=== PATIENT | male | born 1950 | race Caucasian/White ===

== ENCOUNTER → 2017-04-08 | Outpatient (CLI) | payer BC ==
[2017-04-08 12:18] LABS: ESTIMATED AVERAGE GLUCOSE 166 mg/dl; HA1C FLAG Normal (Normal)
== END | disposition home or self-care (01) ==
LOC: C.LABBC 09:25
PROVIDERS: ATTEND Nurse Practitioner Family
DX: R53.83 Other fatigue (principal)

== ENCOUNTER → 2017-04-15 | Outpatient (CLI) | payer BC ==
[2017-04-15 11:19] LABS: ALT/SGPT 36 U/L (12-78); AST/SGOT 30 U/L (15-37); BLOOD UREA NITROGEN 14 mg/dl (7-18); CALCIUM 8.3 mg/dl (8.5-10.1); CARBON DIOXIDE 33 mmol/L (21-32); CHLORIDE 106 mmol/L (98-107); GLUCOSE 156 mg/dl (70-99); POTASSIUM 3.8 mmol/L (3.5-5.1); SODIUM 142 mmol/L (136-145)
[2017-04-15 11:21] LABS: ALB/GLOB RATIO 0.9 (0.9-2); ALKALINE PHOSPHATASE 110 U/L (45-117)
== END | disposition home or self-care (01) ==
LOC: C.LABBC 09:15
PROVIDERS: ATTEND Family Medicine
DX: E11.65 Type 2 diabetes mellitus with hyperglycemia (principal)

== ENCOUNTER → 2017-04-15 | Outpatient (CLI) | payer BC ==
--- NOTE | 2017-04-15 09:27 | DIAGNOSTIC IMAGING REPORT ---
[facility] CLINICAL HISTORY: KIDNEY STONE nephrocalcinosis COMPARISON STUDY: 02/27/2015 FINDINGS: The soft tissues, psoas shadows, renal outlines and intestinal gas pattern appear normal. There is no evidence for bowel obstruction. No abnormal abdominal calcifications are seen. IMPRESSION: Normal study. Electronically signed by: Nader Lorenz M.D. 04/15/2017 9:25 AM Dictated Date/Time: 04/15/2017 9:25 AM
== END | disposition home or self-care (01) ==
LOC: C.RADBC 09:11
PROVIDERS: ATTEND Urology
DX: N40.1 Benign prostatic hyperplasia with lower urinary tract symptoms (principal); N20.0 Calculus of kidney

== ENCOUNTER → 2017-08-19 | Outpatient (CLI) | payer BC ==
[2017-08-19 11:32] LABS: ESTIMATED AVERAGE GLUCOSE 160 mg/dl; HA1C FLAG Normal (Normal)
== END | disposition home or self-care (01) ==
LOC: C.LABBC 08:39
PROVIDERS: ATTEND Nurse Practitioner Family
DX: E11.65 Type 2 diabetes mellitus with hyperglycemia (principal)

== ENCOUNTER → 2017-10-23 | Outpatient (CLI) | payer BC | END | disposition home or self-care (01) | LOC: C.LAB 18:53 | PROVIDERS: ATTEND Nurse Practitioner Adult Health | DX: R39.9 Unspecified symptoms and signs involving the genitourinary system (principal) ==

== ENCOUNTER 2024-05-05 18:32 | Inpatient (IN) ==
[2024-05-05] MEDS: OPTIRAY 320 150ml IV ONE (18:40)
--- NOTE | 2024-05-05 18:49 | Emergency Department Note ---
Impression & Plan Stroke-like symptoms, Acute right-sided muscle weakness, Frequent PVCs ED Provider Note NAME: SILAS BAIRD (JACK) AGE: 73 SEX: M : 1950 ARRIVES VIA: Ambulance INFORMANT: Patient, EMS, the patient's significant other ED PROVIDER(S): Johnny Chawla DO CHIEF COMPLAINT: Strokelike symptoms HPI: The patient is a 73-year-old male who presented to the emergency department for evaluation of strokelike symptoms. The patient has a history of a stroke in the past. He also has a history of coronary artery disease. He does not take blood thinners. The patient called 911 after he started having symptoms of stroke. He was watching a ball game and approximately 5 PM he started noticing his right arm did not feel right. He tried to stand up and went to the ground because of the right leg would not support him. His significant other also notices that he has a left facial droop. He has a history of stroke in the past. The patient denies having any fever or chest pain. He denies having any nausea or vomiting. He does not take blood thinners. ROS: See above HPI for pertinent positives & negatives. A total of 10 systems reviewed and were otherwise negative. PAST MEDICAL HISTORY: See Below PAST SURGICAL HISTORY: See Below FAMILY HISTORY: See Below SOCIAL HISTORY: See Below HOME MEDICATIONS: See Below ALLERGIES: See Below VITALS: See Below PHYSICAL EXAMINATION: GENERAL: Patient is awake alert in no acute distress patient is resting comfortably and showing no signs of anxiety EYES: The conjunctivae are clear. The pupils are round and reactive. EARS, NOSE, MOUTH AND THROAT: The nose is without any evidence of any deformity. NECK: The neck is nontender and supple. RESPIRATORY: Normal respiratory effort is noted there is no evidence of wheezing rhonchi or rales CARDIOVASCULAR: Regular rate and rhythm noted there no murmurs rubs or gallops normal S1 normal S2. GASTROINTESTINAL: The abdomen is soft. Abdomen is nontender. MUSCULOSKELETAL/EXTREMITIES: There is no evidence of gross deformity full range of motion is noted in the hips and shoulders. SKIN: There is no obvious evidence of any rash. There are no petechiae, pallor or cyanosis noted. NEUROLOGIC: Patient is awake alert and oriented x3. The patient was able to stand but he could not bring his right leg up to initiate gait. The patient is able to hold each leg off the bed for greater than 5 seconds. Planning Management It Specialist strength is symmetric. There is left-sided facial droop with forehead sparing. MEDICAL DECISION MAKING: The patient is a 73-year-old male who presented to the emergency department as a stroke alert. I did receive a prehospital notification about the patient. The patient had an acute onset of right-sided weakness. He was also found to have a left-sided facial droop in the emergency department. I discussed the patient's laboratory and radiographic studies with him. Initially when I saw him in CT he did have significant deficits including an inability to walk with his right leg. He was able to bear weight at that time although he was not able to bear weight earlier. A call was made to pharmacy after my initial evaluation of the CAT scan revealed no acute hemorrhage. The thrombolytic was at the bedside but the patient continued to improve while I was evaluating him in the room. I was on the phone with the telestroke neurologist. After discussion with the patient as well as his significant other the decision was made but they did not wish to have TNK for the symptoms as they were rapidly improving and at this point the patient felt they were mild. The patient was reevaluated multiple times. I discussed his condition with the on-call [facility] hospitalist. He was treated with IV fluids Plavix and IV magnesium. Triage Nursing notes reviewed. Prior medical records reviewed Vital Signs: reviewed and remarkable for no significant abnormalities Differential diagnosis: Infection, dehydration, metabolic abnormality, hypo/hyperglycemia, electrolyte disturbance, anemia, hypoxia, cardiac sources, intracerebral event, toxicologic, neurologic, as well as other pathologies. ER treatment provided: See below Diagnostics interpreted by me: ECG: EKG was obtained in the emergency department. My interpretation is sinus rhythm at [address] segment abnormalities were noted. PVCs were noted. This was compared to a tracing from January 25, 2024. No changes were noted. Prehospital EKG was evaluated. My interpretation is sinus rhythm at 56 bpm. Frequent PVCs were noted. Nonspecific ST segment abnormalities were noted. This compares similar to the EKG obtained in the emergency department Cardiac Monitoring: An order was placed for continuous cardiac monitoring. The monitor shows a rate of 72 bpm with sinus rhythm. Laboratory studies: As stated above and show below. Imaging studies: See below. Radiographic imaging was reviewed by myself Consultation(s): I discussed this case with Dr. Mg who is on-call for telestroke. I discussed this case with Dr. Sandhu who is on-call for the [facility] hospitalist group. ED COURSE: Procedures: none Critical Care: I have personally spent greater than 45 minutes of critical care time in the direct management of this patient. This includes bedside care, interpretation of diagnostic studies, and testing, discussion with consultants, patient, and family members, and other required patient management activities. This 45 minutes is in excess of all separately billable procedures. 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) Arteriosclerotic cardiovascular disease (Acute) Dyslipidemia (Acute) Enlarged prostate with lower urinary tract symptoms (LUTS) (Acute) Mild depression (Acute) Right homonymous hemianopsia (Acute) Vascular dementia (Acute) Ischemic cardiomyopathy 2008, [place] ER, flown to [place] for open heart, f/u dr vallejo Nephrolithiasis Medical History Peripheral neuropathy Hx of myocardial infarction 2007 Diabetes mellitus, type 2 Hx of renal calculi Irregular heart rhythm History of stroke with residual deficit 2007, went to [place] ER, flew to [place], this happened during his [employer] procedure.-no longer has peripheral vision and has short term memory loss. Vitamin D deficiency Surgical History Hx of cardiac catheterization 2007, [facility], flown to [place] for CABG Hx of colonoscopy 07/2022 repeat in 10 yrs H/O umbilical hernia repair H/O oral surgery Hx of CABG 2007, [place], "multiple bypasses, not sure how many"; f/u cindy lynn Family History Father COPD (chronic obstructive pulmonary disease) Diabetes Mother Hypertension Breast cancer Brother Prostate cancer Denies family history of Ovarian cancer Depression Myocardial infarction Lung cancer Colorectal cancer Stroke Social History Smoking Status: Never smoker Second Hand Exposure: No; Do You Dip or Chew Tobacco: No; Hx Alcohol Use: Yes Alcohol type: beer and wine Alcohol Intake Frequency: Monthly or Less Hx Substance Use: No Preferred Language: Maltese Communication Ability: Effective Visual Impairment: Limited Hearing Ability: Normal 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: No Beliefs That Will Affect Care: None marital status: Current Living Situation: Spouse current occupational status: retired Feels Safe at Home: Yes Childhood Exposure to Second-Hand Smoke: Yes Diet: regular caffeine: Yes Dental Care, Regularly: Yes Physical Activity Frequency: Daily Seatbelt Use: always Sunscreen Use: Yes Do you think of yourself as: straight/heterosexual Assistive Devices: Glasses Allergies Allergies Allergy/AdvReac Type Severity Reaction Status Date / Time No Known Allergies Allergy Verified 05/05/24 19:57 Home Meds Home Medications Medication Instructions Recorded Confirmed fish oil-dha-epa 1,200 mg-144 1 cap PO BID 05/18/19 05/05/24 mg-216 mg capsule calcium carbonate 500 mg-vitamin 1 tab PO BID 08/29/19 05/05/24 D3 15 mcg (600 unit) tablet cholecalciferol (vitamin D3) 25 1,000 units PO QPM 08/29/19 05/05/24 mcg (1,000 unit) capsule dutasteride 0.5 mg capsule 0.5 mg PO QPM 01/25/24 05/05/24 metformin 500 mg tablet,extended See Rx Instructions .Route .COMPLEX 01/25/24 05/05/24 release 24 hr aspirin 81 mg tablet,delayed 81 mg PO DAILY 05/05/24 05/05/24 release tirzepatide 10 mg/0.5 mL 10 mg subcut WK 05/05/24 05/05/24 subcutaneous pen injector Previous Rx's Medication Instructions Recorded blood sugar diagnostic (OneTouch #100 ea 05/24/23 Verio test strips) blood sugar diagnostic (OneTouch #100 ea 05/24/23 Verio test strips) insulin glargine 100 unit/mL (3 20 unit (0.2 mL) subcut HS #15 mL 08/17/23 mL) subcutaneous pen (Basaglar KwikPen U-100 Insulin) pen needle, diabetic 32 gauge x #100 ea 12/18/23" atorvastatin 80 mg tablet 80 mg PO HS #90 tabs 12/25/23 sertraline 50 mg tablet 50 mg PO QPM 90 days #90 tabs 02/12/24 methenamine hippurate 1 gram tablet 1 g PO BID #180 tabs 03/04/24 metoprolol succinate 25 mg 25 mg PO DAILY #90 tabs 04/11/24 tablet,extended release 24 hr Results & Data (ED) Vital Signs Vital Signs - 24 hr 05/05/24 18:42 05/05/24 18:48 05/05/24 18:49 Temperature 36.4 C L Temperature Source Oral Pulse Rate 68 Pulse Rate [Apical] 71 Respiratory Rate 18 Respiratory Effort / Characteristics Non-Labored Respiratory Depth Normal Respiratory Pattern Regular Blood Pressure [Right Arm] 135/76 Blood Pressure Mean [Right Arm] 95 Pulse Oximetry 95 Oxygen Delivery Method Room Air Sepsis Recent Fever Within 48 Hours No Sepsis New/Unexplained Change in Mental Status No Sepsis Action Taken by Nursing No Action Required 05/05/24 18:59 Temperature Temperature Source Pulse Rate Pulse Rate [Apical] 72 Respiratory Rate 20 Respiratory Effort / Characteristics Respiratory Depth Normal Respiratory Pattern Blood Pressure [Right Arm] 133/69 Blood Pressure Mean [Right Arm] 90 Pulse Oximetry 97 Oxygen Delivery Method Room Air Sepsis Recent Fever Within 48 Hours Sepsis New/Unexplained Change in Mental Status Sepsis Action Taken by [facility]dc Medications Current Medication List: was personally reviewed by me Laboratory Data Attestation: I reviewed the patient's lab results. 05/05/24 18:46 05/05/24 18:46 Lab Results 05/05/24 05/05/24 Range/Units 18:46 18:51 WBC 10.21 (4.8-10.8) K/ul RBC 4.51 L (4.70-6.10) M/uL Hgb 13.4 L (14.0-18.0) g/dl Hct 40.0 L (42.0-52.0) % MCV 88.7 (80.0-100.0) fL MCH 29.7 (25.0-34.0) pg MCHC 33.5 (32.0-36.0) g/dL RDW Std Deviation 42.9 (36.4-46.3) fL RDW Coeff of Alirio 13.2 (11.5-14.5) % Plt Count 156 (130-400) K/uL MPV 10.4 (9.4-12.4) fL Immature Gran % (Auto) 0.3 % Neut % (Auto) 59.3 % Lymph % (Auto) 28.2 % [place] % (Auto) 9.8 % Eos % (Auto) 1.7 % Baso % (Auto) 0.7 % Neut # (Auto) 6.06 (1.40-6.50) K/uL Lymph # (Auto) 2.88 (1.20-3.40) K/uL [place] # (Auto) 1.00 H (0.11-0.59) K/uL Eos # (Auto) 0.17 (0.00-0.50) K/uL Baso # (Auto) 0.07 (0.00-0.20) K/uL Immature Gran # (Auto) 0.03 (0.01-0.20) K/uL PT 11.5 (9.0-12.0) Seconds INR 1.1 (0.9-1.1) APTT 26 (21-31) Seconds PTT Ratio 1.0 Sodium 134 L (136-145) mmol/L Potassium 3.7 (3.5-5.1) mmol/L Chloride 104 (98-107) mmol/L Carbon Dioxide 26 (21-32) mmol/L Anion Gap 4 (3-11) BUN 18 (6-23) mg/dl Creatinine 0.78 (0.6-1.4) mg/dl Est Cr Clr Drug Dosing 101.7 ml/min Est GFR ( Amer) 103.8 ml/min Est GFR (Non-Af Amer) 89.6 ml/min BUN/Creatinine Ratio 23.1 H (10-20) Glucose 137 H (70-99(Fasting)) mg/dl POC Glucose 134 H (70-99) mg/dl Calcium 7.9 L (8.6-10.3) mg/dl Magnesium 1.8 (1.7-2.4) mg/dl Total Bilirubin 0.8 (0.2-1.0) mg/dl AST 21 (13-39) U/L ALT 15 (7-52) U/L Alkaline Phosphatase 62 (34-104) U/L Troponin I High Sens 12.9 (0-20) pg/ml Total Protein 6.3 (6.0-8.3) gm/dl Albumin 3.4 (3.4-5.0) gm/dl Globulin 2.9 (2.5-4.0) gm/dl Albumin/Globulin Ratio 1.2 (0.9-2) Administered Medications Sodium Chloride (Nss) 500 mls @ 125 mls/hr IV .Q4H MIRIAM Stop: 06/04/24 19:14 Last Admin: 05/05/24 20:01 Dose: 125 mls/hr Documented By: JOSHUA Discontinued Medications Clopidogrel Bisulfate (Clopidogrel Bisulfate 300 Mg Tab) 300 mg PO NOW STA Stop: 05/05/24 19:43 Last Admin: 05/05/24 19:59 Dose: 300 mg Documented By: JOSHUA Tenecteplase 24 mg/ Syringe 4.8 mls @ 57.6 mls/min IV NOW ONE; Protocol Stop: 05/05/24 18:57 Last Admin: 05/05/24 19:32 Dose: Not Given Documented By: JOSHUA Magnesium Sulfate/Dextrose (Magnesium Sulfate / D5w) 1 gm in 100 mls @ 100 mls/hr IV NOW STA Stop: 05/05/24 20:08 Last Admin: 05/05/24 20:01 Dose: 100 mls/hr Documented By: JOSHUA Ioversol (Optiray 320 150ml) 120 ml IV ONCE ONE Stop: 05/05/24 18:41 Last Admin: 05/05/24 18:40 Dose: 120 ml Documented By: JASON Miscellaneous (Stat Iv/Im) 1 each N/A NOW STA Stop: 05/05/24 18:47 Last Admin: 05/05/24 19:48 Dose: Not Given Documented By: JOSHUA Sodium Chloride (Sodium Chloride 0.9% 10ml Flush) 20 ml IV NOW STA Stop: 05/05/24 18:47 Last Admin: 05/05/24 19:47 Dose: Not Given Documented By: JOSHUA Imaging Data Attestation: I personally reviewed and interpreted this imaging study as follows: My Impression: 1 view chest x-ray was obtained in the emergency department. My interpretation is no free air or definite infiltrate, final report below. CT of the brain was obtained in the emergency department. My interpretation is previous infarct in the left occipital lobe, no intracranial hemorrhage, final report below. Radiologist's Impression: Head CT 05/05/24 18:[address] OF THE BRAIN; CT ANGIOGRAM OF THE BRAIN; CT ANGIOGRAM OF THE NECK CLINICAL HISTORY: Neurological deficit. Stroke like symptoms. COMPARISON STUDY: MRI of the brain dated 05/08/2020. TECHNIQUE: Unenhanced axial CT scan of the brain is performed. Subsequently, following the IV administration of 120 of Optiray 320, CT angiogram of the head and neck was performed from the aortic arch to the vertex. Images are reviewed in the axial, sagittal, and coronal planes. 3-D MIPS images are created and assessed. IV contrast was administered without complication. All measurements were calculated based on NASCET criteria. A dose lowering technique was utilized adhering to the principles of ALARA. CT DOSE: 1434.25 mGy.cm FINDINGS: Brain parenchyma: Left occipital encephalomalacia is consistent with a remote insult. There is ex vacuo dilatation of the posterior horn of the left lateral ventricle. 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 There is no hemorrhage, mass effect, or evidence of acute territorial ischemia by CT criteria. A chronic lacunar infarct is noted in the anterior limb of the right internal capsule. There is also a tiny chronic lacunar infarct in the right thalamus. There is no evidence of enhancing mass lesion on the angiogram phase images. The ventricles, sulci, and cisterns are prominent secondary to change. Freed-white matter differentiation is preserved. No extra-axial fluid collection is seen. Thoracic aorta: There is atherosclerotic calcification of the thoracic aorta. Visualized portions of the thoracic aorta are normal in caliber. The aortic arch demonstrates standard 3-vessel anatomy. Right carotid arterial system: The right common carotid artery is widely patent, as are the right internal and external carotid arteries. Calcified plaque is seen in the carotid bulb. Left carotid arterial system: The left common carotid artery is widely patent, as are the left internal and external carotid arteries. Calcified plaque is seen in the carotid bulb. Vertebral arteries: The vertebral arteries are widely patent bilaterally noting right-sided dominance. Subclavian arteries: Widely patent bilaterally. Intracranial vasculature: There is atherosclerotic calcification of the cavernous carotid and vertebral arteries. The internal carotid arteries are patent at the skull base, as are the anterior and middle cerebral arteries bilaterally. The right A1 segment is diminutive. The vertebrobasilar system and posterior cerebral arteries are widely patent. The right vertebral artery is dominant. There is no aneurysm, high-grade stenosis, or focal vessel cut off seen throughout the intracranial circulation. Jugular veins: Patent bilaterally. Dural sinuses: Patent. Lung apices: Partially visualized upper lobe lung parenchyma appears clear. Soft tissues: The visualized pharyngeal soft tissues are normal in appearance noting angiographic phase technique. The oropharyngeal airway appears widely patent. The salivary and thyroid glands are normal in appearance. No cervical lymphadenopathy is seen. Skeletal structures: The skeletal structures are osteopenic. The calvarium appears intact. The cervical spine is maintained noting multilevel spondylosis. Midline sternotomy wires are observed. Orbits: The bony orbits are intact. Orbital contents are normal as visualized. Sinuses and mastoids: There is trace mucosal thickening in the left maxillary antrum. The remaining paranasal sinuses are clear. The mastoid air cells are well pneumatized. IMPRESSION: 1. There is no hemorrhage, mass effect, or evidence of acute territorial ischemia by CT criteria. 2. Unremarkable CT angiogram of the brain. 3. Unremarkable CT angiogram of the neck. ACT 112: Negative or not required by law. Electronically signed by: Steve Dailey M.D. 05/05/2024 6:59 PM Head CTA 05/05/24 18:[address] OF THE BRAIN; CT ANGIOGRAM OF THE BRAIN; CT ANGIOGRAM OF THE NECK CLINICAL HISTORY: Neurological deficit. Stroke like symptoms. COMPARISON STUDY: MRI of the brain dated 05/08/2020. TECHNIQUE: Unenhanced axial CT scan of the brain is performed. Subsequently, following the IV administration of 120 of Optiray 320, CT angiogram of the head and neck was performed from the aortic arch to the vertex. Images are reviewed in the axial, sagittal, and coronal planes. 3-D MIPS images are created and assessed. IV contrast was administered without complication. All measurements were calculated based on NASCET criteria. A dose lowering technique was utilized adhering to the principles of ALARA. CT DOSE: 1434.25 mGy.cm FINDINGS: Brain parenchyma: Left occipital encephalomalacia is consistent with a remote insult. There is ex vacuo dilatation of the posterior horn of the left lateral ventricle. 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 There is no hemorrhage, mass effect, or evidence of acute territorial ischemia by CT criteria. A chronic lacunar infarct is noted in the anterior limb of the right internal capsule. There is also a tiny chronic lacunar infarct in the right thalamus. There is no evidence of enhancing mass lesion on the angiogram phase images. The ventricles, sulci, and cisterns are prominent secondary to change. Freed-white matter differentiation is preserved. No extra-axial fluid collection is seen. Thoracic aorta: There is atherosclerotic calcification of the thoracic aorta. Visualized portions of the thoracic aorta are normal in caliber. The aortic arch demonstrates standard 3-vessel anatomy. Right carotid arterial system: The right common carotid artery is widely patent, as are the right internal and external carotid arteries. Calcified plaque is seen in the carotid bulb. Left carotid arterial system: The left common carotid artery is widely patent, as are the left internal and external carotid arteries. Calcified plaque is seen in the carotid bulb. Vertebral arteries: The vertebral arteries are widely patent bilaterally noting right-sided dominance. Subclavian arteries: Widely patent bilaterally. Intracranial vasculature: There is atherosclerotic calcification of the cavernous carotid and vertebral arteries. The internal carotid arteries are patent at the skull base, as are the anterior and middle cerebral arteries bilaterally. The right A1 segment is diminutive. The vertebrobasilar system and posterior cerebral arteries are widely patent. The right vertebral artery is dominant. There is no aneurysm, high-grade stenosis, or focal vessel cut off seen throughout the intracranial circulation. Jugular veins: Patent bilaterally. Dural sinuses: Patent. Lung apices: Partially visualized upper lobe lung parenchyma appears clear. Soft tissues: The visualized pharyngeal soft tissues are normal in appearance noting angiographic phase technique. The oropharyngeal airway appears widely patent. The salivary and thyroid glands are normal in appearance. No cervical lymphadenopathy is seen. Skeletal structures: The skeletal structures are osteopenic. The calvarium appears intact. The cervical spine is maintained noting multilevel spondylosis. Midline sternotomy wires are observed. Orbits: The bony orbits are intact. Orbital contents are normal as visualized. Sinuses and mastoids: There is trace mucosal thickening in the left maxillary antrum. The remaining paranasal sinuses are clear. The mastoid air cells are well pneumatized. IMPRESSION: 1. There is no hemorrhage, mass effect, or evidence of acute territorial ischemia by CT criteria. 2. Unremarkable CT angiogram of the brain. 3. Unremarkable CT angiogram of the neck. ACT 112: Negative or not required by law. Electronically signed by: Steve Dailey M.D. 05/05/2024 6:59 PM Neck CTA 05/05/24 18:[address] OF THE BRAIN; CT ANGIOGRAM OF THE BRAIN; CT ANGIOGRAM OF THE NECK CLINICAL HISTORY: Neurological deficit. Stroke like symptoms. COMPARISON STUDY: MRI of the brain dated 05/08/2020. TECHNIQUE: Unenhanced axial CT scan of the brain is performed. Subsequently, following the IV administration of 120 of Optiray 320, CT angiogram of the head and neck was performed from the aortic arch to the vertex. Images are reviewed in the axial, sagittal, and coronal planes. 3-D MIPS images are created and assessed. IV contrast was administered without complication. All measurements were calculated based on NASCET criteria. A dose lowering technique was utilized adhering to the principles of ALARA. CT DOSE: 1434.25 mGy.cm FINDINGS: Brain parenchyma: Left occipital encephalomalacia is consistent with a remote insult. There is ex vacuo dilatation of the posterior horn of the left lateral ventricle. 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 There is no hemorrhage, mass effect, or evidence of acute territorial ischemia by CT criteria. A chronic lacunar infarct is noted in the anterior limb of the right internal capsule. There is also a tiny chronic lacunar infarct in the right thalamus. There is no evidence of enhancing mass lesion on the angiogram phase images. The ventricles, sulci, and cisterns are prominent secondary to change. Freed-white matter differentiation is preserved. No extra-axial fluid collection is seen. Thoracic aorta: There is atherosclerotic calcification of the thoracic aorta. Visualized portions of the thoracic aorta are normal in caliber. The aortic arch demonstrates standard 3-vessel anatomy. Right carotid arterial system: The right common carotid artery is widely patent, as are the right internal and external carotid arteries. Calcified plaque is seen in the carotid bulb. Left carotid arterial system: The left common carotid artery is widely patent, as are the left internal and external carotid arteries. Calcified plaque is seen in the carotid bulb. Vertebral arteries: The vertebral arteries are widely patent bilaterally noting right-sided dominance. Subclavian arteries: Widely patent bilaterally. Intracranial vasculature: There is atherosclerotic calcification of the cavernous carotid and vertebral arteries. The internal carotid arteries are patent at the skull base, as are the anterior and middle cerebral arteries bilaterally. The right A1 segment is diminutive. The vertebrobasilar system and posterior cerebral arteries are widely patent. The right vertebral artery is dominant. There is no aneurysm, high-grade stenosis, or focal vessel cut off seen throughout the intracranial circulation. Jugular veins: Patent bilaterally. Dural sinuses: Patent. Lung apices: Partially visualized upper lobe lung parenchyma appears clear. Soft tissues: The visualized pharyngeal soft tissues are normal in appearance noting angiographic phase technique. The oropharyngeal airway appears widely patent. The salivary and thyroid glands are normal in appearance. No cervical lymphadenopathy is seen. Skeletal structures: The skeletal structures are osteopenic. The calvarium appears intact. The cervical spine is maintained noting multilevel spondylosis. Midline sternotomy wires are observed. Orbits: The bony orbits are intact. Orbital contents are normal as visualized. Sinuses and mastoids: There is trace mucosal thickening in the left maxillary antrum. The remaining paranasal sinuses are clear. The mastoid air cells are well pneumatized. IMPRESSION: 1. There is no hemorrhage, mass effect, or evidence of acute territorial ischemia by CT criteria. 2. Unremarkable CT angiogram of the brain. 3. Unremarkable CT angiogram of the neck. ACT 112: Negative or not required by law. Electronically signed by: Steve Dailey M.D. 05/05/2024 6:59 PM Discharge Plan Visit Data Chief Complaint: Stroke Alert Stated Complaint: STROKE ALERT ED Provider: Jonhny Chawla Discharge Problem: Stroke-like symptoms, Acute right-sided muscle weakness, Frequent PVCs Patient Disposition: Being Evaluated by Hospitalist Forms Stand Alone Forms: [facility] Unruly Prescriptions Prescriptions: No Action (DME) OneTouch Verio test strips Strip See Dose Instructions .ROUTE .MEDSUPPLY Qty: 100 5RF Rx Instructions: Test twice daily (DME) OneTouch Verio test strips Strip See Dose Instructions .ROUTE .MEDSUPPLY Qty: 100 5RF Rx Instructions: Test twice daily insulin glargine [Basaglar KwikPen U-100 Insulin] 100 unit/mL (3 mL) insulin pen 20 unit subcut HS Qty: 15 3RF Rx Instructions: INJECT 20 UNITS SUBCUTANEOUSLY ONCE DAILY (DME) pen needle, diabetic 32 gauge x 5/32" needle See Dose Instructions .ROUTE .MEDSUPPLY Qty: 100 3RF Dose Instruction: As directed Rx Instructions: As directed Relion Pen [place] #50-(4mm x 32G) atorvastatin 80 mg tablet 80 mg PO HS Qty: 90 3RF sertraline 50 mg tablet 50 mg PO QPM 90 Days Qty: 90 1RF methenamine hippurate 1 gram tablet 1 g PO BID Qty: 180 3RF fish oil-dha-epa 1,200-144-216 mg capsule 1 cap PO BID calcium carbonate-vitamin D3 500mg (1,250mg) -600 unit tablet 1 tab PO BID cholecalciferol (vitamin D3) 1,000 unit capsule 1,000 units PO QPM metoprolol succinate 25 mg tablet extended release 24 hr 25 mg PO DAILY Qty: 90 3RF Rx Instructions: PER PT'S SPOUSE "ONLY GAVE HIM 12.5 MG THIS MORNING". dutasteride 0.5 mg capsule 0.5 mg PO QPM metformin 500 mg tablet extended release 24 hr See Rx Instructions .ROUTE .COMPLEX Rx Instructions: TAKES 500mg in AM and 1000mg in PM; aspirin 81 mg Tablet,Delayed Release (Dr/Ec) 81 mg PO DAILY tirzepatide 10 mg/0.5 mL pen injector 10 mg subcut WK Patient Comments: weekly on Sundays, last dose 01/21/2024 Rx Instructions: THURSDAYS----HAVE ISSUES GETTING FROM PHARMACY Referrals Referrals: Jim Sandoval DO [Primary Care Provider] -
[2024-05-05 18:58] LABS: Basophils # (auto) 0.07 K/uL (0.00-0.20); Basophils % (auto) 0.7 %; Eosinophils # (auto) 0.17 K/uL (0.00-0.50); Eosinophils % (auto) 1.7 %; Hemoglobin 13.4 g/dl (14.0-18.0); Immature Granulocytes # (auto) 0.03 K/uL (0.01-0.20); Immature Granulocytes % (auto) 0.3 %; Lymphocytes # (auto) 2.88 K/uL (1.20-3.40); Lymphocytes % (auto) 28.2 %; Mean Corpuscular Hemoglobin 29.7 pg (25.0-34.0); Mean Corpuscular Hgb Conc 33.5 g/dL (32.0-36.0); Mean Corpuscular Volume 88.7 fL (80.0-100.0); Mean Platelet Volume 10.4 fL (9.4-12.4); Monocytes % (auto) 9.8 %; Neutrophils # (auto) 6.06 K/uL (1.40-6.50); Neutrophils % (auto) 59.3 %; Platelet Count 156 K/uL (130-400); RDW Coefficient of Variation 13.2 % (11.5-14.5); RDW Standard Deviation 42.9 fL (36.4-46.3); Red Blood Count 4.51 M/uL (4.70-6.10); White Blood Count 10.21 K/ul (4.8-10.8)
[2024-05-05] MEDS ORDERED: No Aspirin within 24hrs of THROMBOLYTIC-Stroke PO SCH (19:00)
--- NOTE | 2024-05-05 19:01 | CT Scan Report ---
UNENHANCED CT OF THE BRAIN; CT ANGIOGRAM OF THE BRAIN; CT ANGIOGRAM OF THE NECK CLINICAL HISTORY: Neurological deficit. Stroke like symptoms. COMPARISON STUDY: MRI of the brain dated 05/08/2020. TECHNIQUE: Unenhanced axial CT scan of the brain is performed. Subsequently, following the IV adminis tration of 120 of Optiray 320, CT angiogram of the head and neck was performed from the aortic arch t o the vertex. Images are reviewed in the axial, sagittal, and coronal planes. 3-D MIPS images are cre ated and assessed. IV contrast was administered without complication. All measurements were calculate d based on NASCET criteria. A dose lowering technique was utilized adhering to the principles of ALA RA. CT DOSE: 1434.25 mGy.cm FINDINGS: Brain parenchyma: Left occipital encephalomalacia is consistent with a remote insult. There is ex vac uo dilatation of the posterior horn of the left lateral ventricle. 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 There is no hemorrhage, mass effect, or evidence of acute territorial ischemia by CT criteria. 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 There is also a tiny chronic lacunar infarct in the right thalamus. There is no evidence of enhancing mass lesion on the angiogra m phase images. The ventricles, sulci, and cisterns are prominent secondary to change. Freed-white mat ter differentiation is preserved. No extra-axial fluid collection is seen. Thoracic aorta: There is atherosclerotic calcification of the thoracic aorta. Visualized portions of the thoracic aorta are normal in caliber. The aortic arch demonstrates standard 3-vessel anatomy. Right carotid arterial system: The right common carotid artery is widely patent, as are the right int ernal and external carotid arteries. Calcified plaque is seen in the carotid bulb. Left carotid arterial system: The left common carotid artery is widely patent, as are the left undergraduate internship al and external carotid arteries. Calcified plaque is seen in the carotid bulb. Vertebral arteries: The vertebral arteries are widely patent bilaterally noting right-sided dominance . Subclavian arteries: Widely patent bilaterally. Intracranial vasculature: There is atherosclerotic calcification of the cavernous carotid and vertebr al arteries. The internal carotid arteries are patent at the skull base, as are the anterior and midd le cerebral arteries bilaterally. The right A1 segment is diminutive. The vertebrobasilar system and posterior cerebral arteries are widely patent. The right vertebral artery is dominant. There is no an eurysm, high-grade stenosis, or focal vessel cut off seen throughout the intracranial circulation. Jugular veins: Patent bilaterally. Dural sinuses: Patent. Lung apices: Partially visualized upper lobe lung parenchyma appears clear. Soft tissues: The visualized pharyngeal soft tissues are normal in appearance noting angiographic pha se technique. The oropharyngeal airway appears widely patent. The salivary and thyroid glands are nor mal in appearance. No cervical lymphadenopathy is seen. Skeletal structures: The skeletal structures are osteopenic. The calvarium appears intact. The cervic al spine is maintained noting multilevel spondylosis. Midline sternotomy wires are observed. Orbits: The bony orbits are intact. Orbital contents are normal as visualized. Sinuses and mastoids: There is trace mucosal thickening in the left maxillary antrum. The remaining p aranasal sinuses are clear. The mastoid air cells are well pneumatized. IMPRESSION: 1. There is no hemorrhage, mass effect, or evidence of acute territorial ischemia by CT criteria. 2. Unremarkable CT angiogram of the brain. 3. Unremarkable CT angiogram of the neck. ACT 112: Negative or not required by law. Electronically signed by: Steve Dailey M.D. 05/05/2024 6:59 PM
[2024-05-05 19:09] LABS: INR 1.1 (0.9-1.1); Partial Thromboplastin Time 26 Seconds (21-31); Prothrombin Time 11.5 Seconds (9.0-12.0)
[2024-05-05 19:15] LABS: Albumin Level 3.4 gm/dl (3.4-5.0); Bilirubin,Total 0.8 mg/dl (0.2-1.0); Calcium 7.9 mg/dl (8.6-10.3); Magnesium 1.8 mg/dl (1.7-2.4); Potassium 3.7 mmol/L (3.5-5.1)
[2024-05-05 19:21] LABS: Albumin Globulin Ratio 1.2 (0.9-2); BUN Creatinine Ratio 23.1 (10-20); Creatinine Clr Calc Pharmacy 101.7 ml/min; Est GFR (African American) 103.8 ml/min; Est GFR (Non-African American) 89.6 ml/min; Globulin 2.9 gm/dl (2.5-4.0); Total Protein 6.3 gm/dl (6.0-8.3)
[2024-05-05 19:25] LABS: Troponin I High Sensitivity 12.9 pg/ml (0-20)
[2024-05-05] MEDS: TENECTEPLASE 24 MG in SYRINGE 0 ML IV ONE (19:32)
[2024-05-05] MEDS: SODIUM CHLORIDE 0.9% 10ML FLUSH IV STA (19:47)
[2024-05-05] MEDS: STAT IV/IM STA (19:48)
[2024-05-05] MEDS: CLOPIDOGREL BISULFATE 300 MG TAB PO STA (19:59)
[2024-05-05] MEDS: MAGNESIUM SULFATE / D5W 1 GM/100 ML BAG IV STA (20:01)
[2024-05-05] MEDS: SODIUM CHLORIDE 0.9% 500 ML IV SCH (20:01)
--- NOTE | 2024-05-05 20:12 | XRay Report ---
SINGLE VIEW CHEST CLINICAL HISTORY: Neurological deficit. Stroke like symptoms FINDINGS: An AP, portable, upright chest radiograph is compared to study dated 01/25/2024. The patient is status post midline sternotomy. The heart is enlarged noting atherosclerotic calcification of the thoracic aorta. There is pulmonary vascular congestion. There is a small right pleural effusion. Ate lectasis is noted at both lung bases. No pneumothorax is seen. The skeletal structures are osteopenic . The bony thorax is grossly intact. IMPRESSION: 1. Cardiomegaly with pulmonary vascular congestion. 2. Small right pleural effusion. ACT 112: Negative or not required by law. Electronically signed by: Steve Dailey M.D. 05/05/2024 8:10 PM
--- NOTE | 2024-05-05 20:22 | History & Physical Report ---
Date of Service May 05, 2024 Assessment & Plan (1) Stroke-like symptoms: Plan: 73yo right-handed male presenting with acute onset of RUE/RLE numbness and weakness which started this evening at 17:00. Patient presented to the ER as a Stroke Alert. Symptoms improved greatly - no indication for TNKase administration. Presently feels near normal. -Check MRI brain -Check 2D echo with bubble -Plavix load administered 300mg po. Continue Plavix 75mg po daily -Continue ASA 81mg po daily -Continue Atorvastatin 80mg po daily -PT/OT assessments appreciated -Check lipid panel and Hgb AIC (2) CAD (coronary artery disease): Plan: Chronic. Stable. No chest pain -Continue (3) Asymptomatic bacteriuria: Plan: Patient afebrile, HD stable and non-toxic in appearance. No urinary symptoms. He does have history of urethral stricture with incomplete bladder emptying s/p dilation in January. No complaints -Will hold off on treatment -Continue methenamine Hippurate for chronic suppression Plan Depression/Anxiety - chronic. stable -Continue Sertraline 50mg po qPM F/E/N - NSS at 100mL/hr x 1L, Mg x 1gm administered, regular diet as tolerated Ppx - SCDs to bilateral LE Code - Full Dispo - Admit to medical with telemetry History of Present Illness Chief Complaint: right sided neuro deficit Primary Care Provider: Jim Sandoval DO Jose Roberts is a pleasant 73yo right-handed male with history of DM, HLP, CAD presenting with stroke-like symptoms. Patient was in his usual state of health until this evening around 17:00 when he developed numbness, tingling and weakness of the RUE and RLE. He was watching an [employer] baseball game when he went to nut picker his drink and found that he was unable to grasp the cup with his right hand or lift his right arm. He tried to get up and walk and noted that his right leg felt numb and he couldn't lift it to ambulate. EMS was called and he was brought to the ER. Stroke-Alert was activated and patient was to receive TNKase. However, his symptoms were steadily improving so TNKase was not administered. Patient feels that he continues to improve now and is near normal. He had a slight headache yesterday which improved by drinking water. Otherwise no complaints. He denies fever, chills, cough, SOB, chest pain, palpitations, abdominal pain, nausea, vomiting or diarrhea. No headache currently. No speech deficits or visual impairment. Patient had an NSTEMI in 05/2008 s/p 2V CABG. His post-operative course was complicated by VT/VF arrest as well as atrial fibrillation. 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 In the ER he has been afebrile, HD stable ER Course: Plavix 300mg NSS x 500mL Mag x 1gm Allergies Allergy/AdvReac Type Severity Reaction Status Date / Time No Known Allergies Allergy Verified 05/05/24 19:57 Home Medications Medication Instructions Recorded Confirmed Type fish oil-dha-epa 1,200 mg-144 1 cap PO BID 05/18/19 05/05/24 History mg-216 mg capsule calcium carbonate 500 mg-vitamin 1 tab PO BID 08/29/19 05/05/24 History D3 15 mcg (600 unit) tablet cholecalciferol (vitamin D3) 25 1,000 units PO QPM 08/29/19 05/05/24 History mcg (1,000 unit) capsule blood sugar diagnostic (OneTouch #100 ea 05/24/23 04/11/24 Rx Verio test strips) blood sugar diagnostic (OneTouch #100 ea 05/24/23 04/11/24 Rx Verio test strips) insulin glargine 100 unit/mL (3 20 unit (0.2 mL) subcut HS #15 mL 07/13/23 05/05/24 Rx mL) subcutaneous pen (Roniaglyue Hernandez U-100 Insulin) pen needle, diabetic 32 gauge x #100 ea 12/18/23 04/11/24 Rx 5/32" atorvastatin 80 mg tablet 80 mg PO HS #90 tabs 12/25/23 05/05/24 Rx dutasteride 0.5 mg capsule 0.5 mg PO QPM 01/25/24 05/05/24 History metformin 500 mg tablet,extended See Rx Instructions .Route .COMPLEX 01/25/24 05/05/24 History release 24 hr sertraline 50 mg tablet 50 mg PO QPM 90 days #90 tabs 02/12/24 05/05/24 Rx methenamine hippurate 1 gram tablet 1 g PO BID #180 tabs 03/04/24 05/05/24 Rx metoprolol succinate 25 mg 25 mg PO DAILY #90 tabs 04/11/24 05/05/24 Rx tablet,extended release 24 hr aspirin 81 mg tablet,delayed 81 mg PO DAILY 05/05/24 05/05/24 History release tirzepatide 10 mg/0.5 mL 10 mg subcut WK 05/05/24 05/05/24 History subcutaneous pen injector Past Med/Surg History Problem List (Updated 05/06/24 @ 02:01 by Es Sandhu DO) Asymptomatic bacteriuria Frequent PVCs (Acute) Acute right-sided muscle weakness (Acute) Stroke-like symptoms (Acute) Orthostatic lightheadedness S/P CABG x 2 CAD (coronary artery disease) H/O: stroke with residual effects Urethral stricture Obesity Incomplete emptying of bladder Recurrent UTI Diabetes mellitus type 2 in obese Sinus arrhythmia Sensory ataxia Gait apraxia Diabetic peripheral neuropathy (Chronic) Arteriosclerotic cardiovascular disease (Acute) Dyslipidemia (Acute) Enlarged prostate with lower urinary tract symptoms (LUTS) (Acute) Mild depression (Acute) Right homonymous hemianopsia (Acute) Vascular dementia (Acute) Ischemic cardiomyopathy 2008, [place] ER, flown to [place] for open heart, f/u dr vallejo Nephrolithiasis Medical History Peripheral neuropathy Hx of myocardial infarction 2007 Diabetes mellitus, type 2 Hx of renal calculi Irregular heart rhythm History of stroke with residual deficit 2007, went to [place] ER, flew to [place], this happened during his Widowmaker procedure.-no longer has peripheral vision and has short term memory loss. Vitamin D deficiency Surgical History Hx of cardiac catheterization 2007, [facility], flown to [place] for CABG Hx of colonoscopy 07/2022 repeat in 10 yrs H/O umbilical hernia repair H/O oral surgery Hx of CABG 2007, [place], "multiple bypasses, not sure how many"; f/u cindy lynn Family History Father COPD (chronic obstructive pulmonary disease) Diabetes Mother Hypertension Breast cancer Brother Prostate cancer Denies family history of Ovarian cancer Depression Myocardial infarction Lung cancer Colorectal cancer Stroke Social History Smoking Status: Never smoker Second Hand Exposure: No; Do You Dip or Chew Tobacco: No; Hx Alcohol Use: No Hx Substance Use: No Preferred Language: Croatian Communication Ability: Effective Visual Impairment: Limited Hearing Ability: Normal [employer] Required: No Beliefs That Will Affect Care: None marital status: Current Living Situation: Alone and Spouse Current Living Situation Comment: lives at home with current occupational status: retired Other Information That Helps Us Care for You: No Feels Safe at Home: Yes Safety Concerns: Feels Safe At This Time Childhood Exposure to Second-Hand Smoke: Yes Diet: regular caffeine: Yes Dental Care, Regularly: Yes Physical Activity Frequency: Daily Seatbelt Use: always Sunscreen Use: Yes Do you think of yourself as: straight/heterosexual Assistive Devices: Glasses Review of Systems Review of Systems: All systems reviewed & are unremarkable except as noted in HPI & below Physical Exam Physical Exam: General: patient resting comfortably, NAD, non-toxic in appearance, AA&O x 4 Skin: warm, dry, intact, no rashes or lesions HEENT: NC/AT, PERRL, EOMI, anicteric sclera, conjunctiva without injection, external ear normal to inspection and nontender, nares patent, moist mucus membranes, dentition intact, no oropharyngeal lesions, neck supple, trachea midline, no LAD, no thyromegaly, no JVD Heart: +S1/S2, regular, no m/r/g Lungs: equal air entry bilaterally, no rales/rhonchi/wheezes Abd: +BS, soft, NT/ND, no masses/organomegaly/ascites Ext: warm, 2+ pulses in UE/LE bilaterally, no clubbing/cyanosis or edema Neuro: AA&O x 4, speech fluent and appropriate, no facial droop, CN II - XII grossly intact, sensation to light touch intact in UE/LE bilaterally, MS 5/5 in UE/LE bilaterally, some mild dysmetria noted with [id number] testing bilaterally, [id number] WNL Results & Data Results & Data Vital Signs (Past 12 Hours) Vital Signs Temp Pulse Pulse Resp BP Pulse Ox O2 Del Method 05/05/24 20:00 Room Air 05/05/24 18:59 72 20 133/69 97 Room Air 05/05/24 18:49 71 18 135/76 95 Room Air 05/05/24 18:48 68 05/05/24 18:42 36.4 C L Laboratory Results Laboratory Results WBC 10.21 K/ul (4.8-10.8) 05/05/24 18:46 RBC 4.51 M/uL (4.70-6.10) L 05/05/24 18:46 Hgb 13.4 g/dl (14.0-18.0) L 05/05/24 18:46 Hct 40.0 % (42.0-52.0) L 05/05/24 18:46 MCV 88.7 fL (80.0-100.0) 05/05/24 18:46 MCH 29.7 pg (25.0-34.0) 05/05/24 18:46 MCHC 33.5 g/dL (32.0-36.0) 05/05/24 18:46 RDW Std Deviation 42.9 fL (36.4-46.3) 05/05/24 18:46 RDW Coeff of Alirio 13.2 % (11.5-14.5) 05/05/24 18:46 Plt Count 156 K/uL (130-400) 05/05/24 18:46 MPV 10.4 fL (9.4-12.4) 05/05/24 18:46 Immature Gran % (Auto) 0.3 % 05/05/24 18:46 Neut % (Auto) 59.3 % 05/05/24 18:46 Lymph % (Auto) 28.2 % 05/05/24 18:46 Latimer % (Auto) 9.8 % 05/05/24 18:46 Eos % (Auto) 1.7 % 05/05/24 18:46 Baso % (Auto) 0.7 % 05/05/24 18:46 Neut # (Auto) 6.06 K/uL (1.40-6.50) 05/05/24 18:46 Lymph # (Auto) 2.88 K/uL (1.20-3.40) 05/05/24 18:46 Latimer # (Auto) 1.00 K/uL (0.11-0.59) H 05/05/24 18:46 Eos # (Auto) 0.17 K/uL (0.00-0.50) 05/05/24 18:46 Baso # (Auto) 0.07 K/uL (0.00-0.20) 05/05/24 18:46 Immature Gran # (Auto) 0.03 K/uL (0.01-0.20) 05/05/24 18:46 PT 11.5 Seconds (9.0-12.0) 05/05/24 18:46 INR 1.1 (0.9-1.1) 05/05/24 18:46 APTT 26 Seconds (21-31) 05/05/24 18:46 PTT Ratio 1.0 05/05/24 18:46 Sodium 134 mmol/L (136-145) L 05/05/24 18:46 Potassium 3.7 mmol/L (3.5-5.1) 05/05/24 18:46 Chloride 104 mmol/L (98-107) 05/05/24 18:46 Carbon Dioxide 26 mmol/L (21-32) 05/05/24 18:46 Anion Gap 4 (3-11) 05/05/24 18:46 BUN 18 mg/dl (6-23) 05/05/24 18:46 Creatinine 0.78 mg/dl (0.6-1.4) 05/05/24 18:46 Est Cr Clr Drug Dosing 101.7 ml/min 05/05/24 18:46 Est GFR ( Amer) 103.8 ml/min 05/05/24 18:46 Est GFR (Non-Af Amer) 89.6 ml/min 05/05/24 18:46 BUN/Creatinine Ratio 23.1 (10-20) H 05/05/24 18:46 Glucose 137 mg/dl (70-99(Fasting)) H 05/05/24 18:46 POC Glucose 134 mg/dl (70-99) H 05/05/24 18:51 Calcium 7.9 mg/dl (8.6-10.3) L 05/05/24 18:46 Magnesium 1.8 mg/dl (1.7-2.4) 05/05/24 18:46 Total Bilirubin 0.8 mg/dl (0.2-1.0) 05/05/24 18:46 AST 21 U/L (13-39) 05/05/24 18:46 ALT 15 U/L (7-52) 05/05/24 18:46 Alkaline Phosphatase 62 U/L (34-104) 05/05/24 18:46 Troponin I High Sens 12.9 pg/ml (0-20) 05/05/24 18:46 Total Protein 6.3 gm/dl (6.0-8.3) 05/05/24 18:46 Albumin 3.4 gm/dl (3.4-5.0) 05/05/24 18:46 Globulin 2.9 gm/dl (2.5-4.0) 05/05/24 18:46 Albumin/Globulin Ratio 1.2 (0.9-2) 05/05/24 18:46 Urine Color Yellow 05/05/24 20:10 Urine Appearance Clear (Clear) 05/05/24 20:10 Urine pH 5.0 (4.5-7.5) 05/05/24 20:10 Ur Specific Hickman > 1.045 (1.000-1.030) H 05/05/24 20:10 Urine Protein Negative (Negative) 05/05/24 20:10 Urine Glucose (UA) Negative (Negative) 05/05/24 20:10 Urine Ketones Negative (Negative) 05/05/24 20:10 Urine Blood Negative (Negative) 05/05/24 20:10 Urine Nitrite Positive (Negative) A 05/05/24 20:10 Urine Bilirubin Negative (Negative) 05/05/24 20:10 Urine Urobilinogen Negative (Negative) 05/05/24 20:10 Ur Leukocyte Esterase Negative (Negative) 05/05/24 20:10 Urine WBC (Auto) 6-10 /hpf (0-5) H 05/05/24 20:10 Urine RBC (Auto) 0-2 /hpf (0-2) 05/05/24 20:10 U Hyaline Cast (Auto) 0-2 /lpf (0-2) 05/05/24 20:10 U Epithel Cells (Auto) 3-5 /hpf (0-2) H 05/05/24 20:10 Urine Bacteria (Auto) 3+ (None Seen) H 05/05/24 20:10 Impressions Chest X-Ray 05/05/24 18:30 SINGLE VIEW CHEST CLINICAL HISTORY: Neurological deficit. Stroke like symptoms FINDINGS: An AP, portable, upright chest radiograph is compared to study dated 01/25/2024. The patient is status post midline sternotomy. The heart is enlarged noting atherosclerotic calcification of the thoracic aorta. There is pulmonary vascular congestion. There is a small right pleural effusion. Atelectasis is noted at both lung bases. No pneumothorax is seen. The skeletal structures are osteopenic. The bony thorax is grossly intact. IMPRESSION: 1. Cardiomegaly with pulmonary vascular congestion. 2. Small right pleural effusion. ACT 112: Negative or not required by law. Electronically signed by: Steve Dailey M.D. 05/05/2024 8:[address] 05/05/24 18:[address] OF THE BRAIN; CT ANGIOGRAM OF THE BRAIN; CT ANGIOGRAM OF THE NECK CLINICAL HISTORY: Neurological deficit. Stroke like symptoms. COMPARISON STUDY: MRI of the brain dated 05/08/2020. TECHNIQUE: Unenhanced axial CT scan of the brain is performed. Subsequently, following the IV administration of 120 of Optiray 320, CT angiogram of the head and neck was performed from the aortic arch to the vertex. Images are reviewed in the axial, sagittal, and coronal planes. 3-D MIPS images are created and assessed. IV contrast was administered without complication. All measurements were calculated based on NASCET criteria. A dose lowering technique was utilized adhering to the principles of ALARA. CT DOSE: 1434.25 mGy.cm FINDINGS: Brain parenchyma: Left occipital encephalomalacia is consistent with a remote insult. There is ex vacuo dilatation of the posterior horn of the left lateral ventricle. 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 There is no hemorrhage, mass effect, or evidence of acute territorial ischemia by CT criteria. A chronic lacunar infarct is noted in the anterior limb of the right internal capsule. There is also a tiny chronic lacunar infarct in the right thalamus. There is no evidence of enhancing mass lesion on the angiogram phase images. The ventricles, sulci, and cisterns are prominent secondary to change. Freed-white matter differentiation is preserved. No extra-axial fluid collection is seen. Thoracic aorta: There is atherosclerotic calcification of the thoracic aorta. Visualized portions of the thoracic aorta are normal in caliber. The aortic arch demonstrates standard 3-vessel anatomy. Right carotid arterial system: The right common carotid artery is widely patent, as are the right internal and external carotid arteries. Calcified plaque is seen in the carotid bulb. Left carotid arterial system: The left common carotid artery is widely patent, as are the left internal and external carotid arteries. Calcified plaque is seen in the carotid bulb. Vertebral arteries: The vertebral arteries are widely patent bilaterally noting right-sided dominance. Subclavian arteries: Widely patent bilaterally. Intracranial vasculature: There is atherosclerotic calcification of the cavernous carotid and vertebral arteries. The internal carotid arteries are patent at the skull base, as are the anterior and middle cerebral arteries bilaterally. The right A1 segment is diminutive. The vertebrobasilar system and posterior cerebral arteries are widely patent. The right vertebral artery is dominant. There is no aneurysm, high-grade stenosis, or focal vessel cut off seen throughout the intracranial circulation. Jugular veins: Patent bilaterally. Dural sinuses: Patent. Lung apices: Partially visualized upper lobe lung parenchyma appears clear. Soft tissues: The visualized pharyngeal soft tissues are normal in appearance noting angiographic phase technique. The oropharyngeal airway appears widely patent. The salivary and thyroid glands are normal in appearance. No cervical lymphadenopathy is seen. Skeletal structures: The skeletal structures are osteopenic. The calvarium appears intact. The cervical spine is maintained noting multilevel spondylosis. Midline sternotomy wires are observed. Orbits: The bony orbits are intact. Orbital contents are normal as visualized. Sinuses and mastoids: There is trace mucosal thickening in the left maxillary antrum. The remaining paranasal sinuses are clear. The mastoid air cells are well pneumatized. IMPRESSION: 1. There is no hemorrhage, mass effect, or evidence of acute territorial ischemia by CT criteria. 2. Unremarkable CT angiogram of the brain. 3. Unremarkable CT angiogram of the neck. ACT 112: Negative or not required by law. Electronically signed by: Steve Dailey M.D. 05/05/2024 6:59 PM Head CTA 05/05/24 18:[address] OF THE BRAIN; CT ANGIOGRAM OF THE BRAIN; CT ANGIOGRAM OF THE NECK CLINICAL HISTORY: Neurological deficit. Stroke like symptoms. COMPARISON STUDY: MRI of the brain dated 05/08/2020. TECHNIQUE: Unenhanced axial CT scan of the brain is performed. Subsequently, following the IV administration of 120 of Optiray 320, CT angiogram of the head and neck was performed from the aortic arch to the vertex. Images are reviewed in the axial, sagittal, and coronal planes. 3-D MIPS images are created and assessed. IV contrast was administered without complication. All measurements were calculated based on NASCET criteria. A dose lowering technique was utilized adhering to the principles of ALARA. CT DOSE: 1434.25 mGy.cm FINDINGS: Brain parenchyma: Left occipital encephalomalacia is consistent with a remote insult. There is ex vacuo dilatation of the posterior horn of the left lateral ventricle. 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 There is no hemorrhage, mass effect, or evidence of acute territorial ischemia by CT criteria. A chronic lacunar infarct is noted in the anterior limb of the right internal capsule. There is also a tiny chronic lacunar infarct in the right thalamus. There is no evidence of enhancing mass lesion on the angiogram phase images. The ventricles, sulci, and cisterns are prominent secondary to change. Freed-white matter differentiation is preserved. No extra-axial fluid collection is seen. Thoracic aorta: There is atherosclerotic calcification of the thoracic aorta. Visualized portions of the thoracic aorta are normal in caliber. The aortic arch demonstrates standard 3-vessel anatomy. Right carotid arterial system: The right common carotid artery is widely patent, as are the right internal and external carotid arteries. Calcified plaque is seen in the carotid bulb. Left carotid arterial system: The left common carotid artery is widely patent, as are the left internal and external carotid arteries. Calcified plaque is seen in the carotid bulb. Vertebral arteries: The vertebral arteries are widely patent bilaterally noting right-sided dominance. Subclavian arteries: Widely patent bilaterally. Intracranial vasculature: There is atherosclerotic calcification of the cavernous carotid and vertebral arteries. The internal carotid arteries are patent at the skull base, as are the anterior and middle cerebral arteries bilaterally. The right A1 segment is diminutive. The vertebrobasilar system and posterior cerebral arteries are widely patent. The right vertebral artery is dominant. There is no aneurysm, high-grade stenosis, or focal vessel cut off seen throughout the intracranial circulation. Jugular veins: Patent bilaterally. Dural sinuses: Patent. Lung apices: Partially visualized upper lobe lung parenchyma appears clear. Soft tissues: The visualized pharyngeal soft tissues are normal in appearance noting angiographic phase technique. The oropharyngeal airway appears widely patent. The salivary and thyroid glands are normal in appearance. No cervical lymphadenopathy is seen. Skeletal structures: The skeletal structures are osteopenic. The calvarium appears intact. The cervical spine is maintained noting multilevel spondylosis. Midline sternotomy wires are observed. Orbits: The bony orbits are intact. Orbital contents are normal as visualized. Sinuses and mastoids: There is trace mucosal thickening in the left maxillary antrum. The remaining paranasal sinuses are clear. The mastoid air cells are well pneumatized. IMPRESSION: 1. There is no hemorrhage, mass effect, or evidence of acute territorial ischemia by CT criteria. 2. Unremarkable CT angiogram of the brain. 3. Unremarkable CT angiogram of the neck. ACT 112: Negative or not required by law. Electronically signed by: Steve Dailey M.D. 05/05/2024 6:59 PM Neck CTA 05/05/24 18:[address] OF THE BRAIN; CT ANGIOGRAM OF THE BRAIN; CT ANGIOGRAM OF THE NECK CLINICAL HISTORY: Neurological deficit. Stroke like symptoms. COMPARISON STUDY: MRI of the brain dated 05/08/2020. TECHNIQUE: Unenhanced axial CT scan of the brain is performed. Subsequently, following the IV administration of 120 of Optiray 320, CT angiogram of the head and neck was performed from the aortic arch to the vertex. Images are reviewed in the axial, sagittal, and coronal planes. 3-D MIPS images are created and assessed. IV contrast was administered without complication. All measurements were calculated based on NASCET criteria. A dose lowering technique was utilized adhering to the principles of ALARA. CT DOSE: 1434.25 mGy.cm FINDINGS: Brain parenchyma: Left occipital encephalomalacia is consistent with a remote insult. There is ex vacuo dilatation of the posterior horn of the left lateral ventricle. 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 There is no hemorrhage, mass effect, or evidence of acute territorial ischemia by CT criteria. A chronic lacunar infarct is noted in the anterior limb of the right internal capsule. There is also a tiny chronic lacunar infarct in the right thalamus. There is no evidence of enhancing mass lesion on the angiogram phase images. The ventricles, sulci, and cisterns are prominent secondary to change. Freed-white matter differentiation is preserved. No extra-axial fluid collection is seen. Thoracic aorta: There is atherosclerotic calcification of the thoracic aorta. Vi sualized portions of the thoracic aorta are normal in caliber. The aortic arch demonstrates standard 3-vessel anatomy. Right carotid arterial system: The right common carotid artery is widely patent, as are the right internal and external carotid arteries. Calcified plaque is seen in the carotid bulb. Left carotid arterial system: The left common carotid artery is widely patent, as are the left internal and external carotid arteries. Calcified plaque is seen in the carotid bulb. Vertebral arteries: The vertebral arteries are widely patent bilaterally noting right-sided dominance. Subclavian arteries: Widely patent bilaterally. Intracranial vasculature: There is atherosclerotic calcification of the cavernous carotid and vertebral arteries. The internal carotid arteries are patent at the skull base, as are the anterior and middle cerebral arteries bilaterally. The right A1 segment is diminutive. The vertebrobasilar system and posterior cerebral arteries are widely patent. The right vertebral artery is dominant. There is no aneurysm, high-grade stenosis, or focal vessel cut off seen throughout the intracranial circulation. Jugular veins: Patent bilaterally. Dural sinuses: Patent. Lung apices: Partially visualized upper lobe lung parenchyma appears clear. Soft tissues: The visualized pharyngeal soft tissues are normal in appearance noting angiographic phase technique. The oropharyngeal airway appears widely patent. The salivary and thyroid glands are normal in appearance. No cervical lymphadenopathy is seen. Skeletal structures: The skeletal structures are osteopenic. The calvarium appears intact. The cervical spine is maintained noting multilevel spondylosis. Midline sternotomy wires are observed. Orbits: The bony orbits are intact. Orbital contents are normal as visualized. Sinuses and mastoids: There is trace mucosal thickening in the left maxillary antrum. The remaining paranasal sinuses are clear. The mastoid air cells are well pneumatized. IMPRESSION: 1. There is no hemorrhage, mass effect, or evidence of acute territorial ischemia by CT criteria. 2. Unremarkable CT angiogram of the brain. 3. Unremarkable CT angiogram of the neck. ACT 112: Negative or not required by law. Electronically signed by: Steve Dailey M.D. 05/05/2024 6:59 PM ECG Additional Comments: EKG per my interpretation with SR at 68pbm, PVCs, ND=827, AYO=531, UQj=563, no acute ischemic changes Code Status & VTE Plan VTE Prophylaxis Plan VTE Prophylaxis will be ordered: Yes PG Care Time/CCT Total # of Minutes Spent Total Time Spent with Patient: Total time spent is greater than 50% in coordination of care (as documented) at patient's floor/unit and/or counseling patient: Coding Level of Care Code 29684 INT INP/OBS CARE 3/75MIN Diagnoses Stroke-like symptoms R29.90 Coronary artery disease involving torres martinez coronary artery of torres martinez heart without angina pectoris I25.10 Coronary Disease-Associated Artery/Lesion type: torres martinez artery [place] vs. transplanted heart: torres martinez heart Associated angina: without angina Asymptomatic bacteriuria R82.71 (2) CAD (coronary artery disease) Coronary Disease-Associated Artery/Lesion type: torres martinez artery [place] vs. transplanted heart: torres martinez heart Associated angina: without angina Qualified Code(s): I25.10 - Atherosclerotic heart disease of torres martinez coronary artery without angina pectoris
[2024-05-05 20:32] LABS: Appearance Urine Clear (Clear); Bacteria Urine Automated 3+ (None Seen); Bilirubin Urine Negative (Negative); Blood Urine Negative (Negative); Cast Urine Automated 0-2 /lpf (0-2); Color Urine Yellow; Glucose Urine UA Negative (Negative); Ketones Urine Negative (Negative); Leukocyte Esterase Urine Negative (Negative); Nitrite Urine Positive (Negative); Protein Urine Negative (Negative); RBC Urine Automated 0-2 /hpf (0-2); Specific Gravity Urine > 1.045 (1.000-1.030); Urobilinogen Urine Negative (Negative)
[2024-05-05] MEDS ORDERED: ACETAMINOPHEN 325 MG TAB PO PRN (23:01)
[2024-05-05] MEDS ORDERED: PHARMACIST DISCHARGE MED REC CONSULT PRN (23:01)
[2024-05-05] MEDS ORDERED: ONDANSETRON INJ 2 MG/ML 2 ML VIAL IV PRN (23:01)
[2024-05-05] MEDS: ATORVASTATIN 40 MG TAB PO SCH (23:47)
[2024-05-05] MEDS: SERTRALINE HCL 50 MG TABLET PO SCH (23:47)
[2024-05-05] MEDS: METHENAMINE HIPPURATE 1 GM TAB PO SCH (23:48)
[2024-05-06] MEDS: SODIUM CHLORIDE 0.9% 1,000 ML IV SCH (03:55)
[2024-05-06 06:36] LABS: Basophils # (auto) 0.07 K/uL (0.00-0.20); Basophils % (auto) 0.6 %; Eosinophils # (auto) 0.27 K/uL (0.00-0.50); Eosinophils % (auto) 2.3 %; Hematocrit (blood only) 39.5 % (42.0-52.0); Hemoglobin 13.3 g/dl (14.0-18.0); Immature Granulocytes # (auto) 0.04 K/uL (0.01-0.20); Immature Granulocytes % (auto) 0.3 %; Lymphocytes # (auto) 2.66 K/uL (1.20-3.40); Lymphocytes % (auto) 22.4 %; Mean Corpuscular Hemoglobin 29.8 pg (25.0-34.0); Mean Corpuscular Hgb Conc 33.7 g/dL (32.0-36.0); Mean Corpuscular Volume 88.6 fL (80.0-100.0); Monocytes # (auto) 1.23 K/uL (0.11-0.59); Monocytes % (auto) 10.4 %; Neutrophils # (auto) 7.61 K/uL (1.40-6.50); Platelet Count 174 K/uL (130-400); RDW Coefficient of Variation 12.6 % (11.5-14.5); RDW Standard Deviation 41.1 fL (36.4-46.3); Red Blood Count 4.46 M/uL (4.70-6.10); White Blood Count 11.88 K/ul (4.8-10.8)
[2024-05-06 06:55] LABS: Chol HDL Ratio 2.6 (0-5); Creatinine Clr Calc Pharmacy 112.6 ml/min; Est GFR (African American) 108.5 ml/min; Est GFR (Non-African American) 93.6 ml/min; Potassium 3.5 mmol/L (3.5-5.1)
[2024-05-06 08:27] LABS: Estimated Average Glucose 140 mg/dl; Hemoglobin A1C 6.5 % (4.5-5.6)
[2024-05-06] MEDS: ASPIRIN 81 MG ECTAB PO SCH (08:32)
[2024-05-06] MEDS: CLOPIDOGREL BISULFATE 75 MG TAB PO SCH (08:32)
--- NOTE | 2024-05-06 08:54 | XCELERA ---
[id number]
--- NOTE | 2024-05-06 09:42 | Neurology Consultation ---
Date of Consultation May 06, 2024 Assessment & Plan (1) TIA (transient ischemic attack): (2) H/O: stroke with residual effects: Plan 73-year-old male presenting with probable TIA characterized by acute onset, transient right hemiparesis, had rapidly improved by the time he was evaluated in the emergency department. However, he does have some difficulty with gait initiation and I am unable to completely exclude an actual stroke. He does have a chronic relatively large left FLATBED DRIVER stroke resulting in a residual dense right hemianopsia. He is unable to drive a motor vehicle. He also has extensive chronic cerebrovascular disease with associated mild vascular dementia and he may have an evolving subcortical gait dysfunction due to cerebrovascular disease as well. He also has a chronic severe peripheral neuropathy which may be related to his history of diabetes mellitus although he has Charcot deformities of both feet and he may have a hereditary sensorimotor neuropathy, although no clear family history of this issue. Follow-up with results of brain MRI. Agree with dual antiplatelet therapy, aspirin 81 mg/day and clopidogrel 75 mg/day for 3 weeks. Would then discontinue aspirin and continue with clopidogrel 75 mg/day. Would recommend 30-day mobile cardiac outpatient telemetry. Continue with atorvastatin 80 mg/day. Permissive hypertension acutely, systolic blood pressure goal 140 to 160 mmHg. Going forward, outpatient systolic blood pressure goal up to 130 mmHg. His diabetes appears to be well-controlled with a recent hemoglobin A1c of 6.5. Consultation with PT/OT Does not require additional evaluation or treatment of his mild vascular dementia or peripheral neuropathy at this time. May follow-up with myself or an JEFF in neurology clinic in 3 to 4 weeks. History of Present Illness Reason for Consultation: TIA Requesting Physician: Arnav Attending Physician: Ryan José History of Present Illness The patient is a 73-year-old right-handed male with a history of a fairly large left FLATBED DRIVER territory, occipital lobe infarct several years ago, in the context of myocardial infarction, resulting in a dense right homonymous hemianopsia. He follows with me periodically in neurology clinic and also has mild vascular dementia, history of intolerance to donepezil. He does not drive. He has been taking daily aspirin and atorvastatin. History also notable for insulin- dependent diabetes mellitus which has been well-controlled recently. He presented to the emergency department last night with a chief complaint of right-sided weakness of sudden onset, arm and leg, unable to stand or grasp objects with the right hand. He does not recall any associated numbness or change in speech. He was noted to have some difficulty with gait initiation with the right leg, but otherwise did not have obvious focal weakness. He did have a telestroke consultation, TNKase was not administered as his symptoms were rapidly improving. A CT of the head including CTA of the head and neck were unremarkable. He was given a loading dose of clopidogrel, aspirin and atorvastatin were continued. A brain MRI has been ordered. An echocardiogram was completed this morning which revealed severe hypokinesis of the inferior and posterior pate of the left ventricle, from the base to mid ventricle and mild dilation of the left atrium, no PFO. This morning, the patient continues to report resolution of his right arm and leg weakness, although he continues to have some difficulty with gait initiation. Allergies Allergy/AdvReac Type Severity Reaction Status Date / Time No Known Allergies Allergy Verified 05/05/24 19:57 Home Medications Medication Instructions Recorded Confirmed Type fish oil-dha-epa 1,200 mg-144 1 cap PO BID 05/18/19 05/05/24 History mg-216 mg capsule calcium carbonate 500 mg-vitamin 1 tab PO BID 08/29/19 05/05/24 History D3 15 mcg (600 unit) tablet cholecalciferol (vitamin D3) 25 1,000 units PO QPM 08/29/19 05/05/24 History mcg (1,000 unit) capsule blood sugar diagnostic (OneTouch #100 ea 05/24/23 04/11/24 Rx Verio test strips) blood sugar diagnostic (OneTouch #100 ea 05/24/23 04/11/24 Rx Verio test strips) insulin glargine 100 unit/mL (3 20 unit (0.2 mL) subcut HS #15 mL 07/13/23 05/05/24 Rx mL) subcutaneous pen (Basaglar KwikPen U-100 Insulin) pen needle, diabetic 32 gauge x #100 ea 12/18/23 04/11/24 Rx 532" atorvastatin 80 mg tablet 80 mg PO HS #90 tabs 12/25/23 05/05/24 Rx dutasteride 0.5 mg capsule 0.5 mg PO QPM 01/25/24 05/05/24 History metformin 500 mg tablet,extended See Rx Instructions .Route .COMPLEX 01/25/24 05/05/24 History release 24 hr sertraline 50 mg tablet 50 mg PO QPM 90 days #90 tabs 02/12/24 05/05/24 Rx methenamine hippurate 1 gram tablet 1 g PO BID #180 tabs 03/04/24 05/05/24 Rx metoprolol succinate 25 mg 25 mg PO DAILY #90 tabs 04/11/24 05/05/24 Rx tablet,extended release 24 hr aspirin 81 mg tablet,delayed 81 mg PO DAILY 05/05/24 05/05/24 History release tirzepatide 10 mg/0.5 mL 10 mg subcut WK 05/05/24 05/05/24 History subcutaneous pen injector Patient History Medical History Peripheral neuropathy Hx of myocardial infarction 2007 Diabetes mellitus, type 2 Hx of renal calculi Irregular heart rhythm History of stroke with residual deficit 2007, went to [facility], flew to [place], this happened during his Widowmaker procedure.-no longer has peripheral vision and has short term memory loss. Vitamin D deficiency Surgical History Hx of cardiac catheterization 2007, [facility], flown to [place] for CABG Hx of colonoscopy 07/2022 repeat in 10 yrs H/O umbilical hernia repair H/O oral surgery Hx of CABG 2007, [place], "multiple bypasses, not sure how many"; f/u dr [place] Family History Father COPD (chronic obstructive pulmonary disease) Diabetes Mother Hypertension Breast cancer Brother Prostate cancer Denies family history of Ovarian cancer Depression Myocardial infarction Lung cancer Colorectal cancer Stroke Social History Smoking Status: Never smoker Second Hand Exposure: No; Do You Dip or Chew Tobacco: No; Hx Alcohol Use: No Hx Substance Use: No Preferred Language: Wolof Communication Ability: Effective Visual Impairment: Limited Hearing Ability: Normal 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 Beliefs That Will Affect Care: None marital status: Current Living Situation: Alone and Spouse Current Living Situation Comment: lives at home with current occupational status: retired Other Information That Helps Us Care for You: No Feels Safe at Home: Yes Safety Concerns: Feels Safe At This Time Childhood Exposure to Second-Hand Smoke: Yes Diet: regular caffeine: Yes Dental Care, Regularly: Yes Physical Activity Frequency: Daily Seatbelt Use: always Sunscreen Use: Yes Do you think of yourself as: straight/heterosexual Assistive Devices: Glasses Review of Systems Constitutional: no fever and no chills Eyes: + blind spots; no diplopia Ear, Nose, Mouth, Throat: no hearing loss Respiratory: no cough and no dyspnea Cardiovascular: no chest pain and no palpitations Gastrointestinal: no nausea and no vomiting Genitourinary: no urinary incontinence Musculoskeletal: no back pain, no neck pain and no myalgia Integumentary: no rash and no lesions Neurologic: as per Subjective / HPI, + gait abnormality, + unsteadiness, + localized weakness and + memory loss; no tremor(s), no abnormal movements, no seizure-like activity, no syncope and no headache(s) Psychiatric: no depression and no anxiety Hematologic / Lymphatic: no easy bleeding and no easy bruising Exam (Neuro) Constitutional: well developed and well nourished; no acute distress Eyes: PERRL and EOM intact bilaterally; + abnormal visual field confrontation (Dense right homonymous hemianopsia with confrontation testing) and no nystagmus Neurologic: Oriented to:: Person, Place and Time Memory: Remote Intact; negative Short Term Intact (2 out of 3 correct with delayed recall) Attention: Span Intact and Concentration Intact Speech Fluency: negative Dysarthria or Dysfluency Speech Aphasia: negative Aphasia Fund of Knowledge: Current Events, Past History and Vocabulary Cranial Nerves: Normal II, III, IV, , V, VII, VIII, IX, X, XI and XII Motor Strength: Normal Lower Extremities and Normal Upper Extremities Motor Tone: Normal Lower Extremities and Normal Upper Extremities Muscle Bulk/Involuntary Movements: No Involuntary Movements; negative Muscle Atrophy Sensation: negative Light Touch Intact, Pain/Temperature Intact, Vibration Intact or Proprioception Intact Coordination: Limited Balance; negative Dysdiadochokinesia, Finger-Nose Abnormal or Heel-Diaz Abnormal Deep Tendon Reflexes: Rt Triceps: 2+, Lt Triceps: 2+, Rt Biceps: 2+, Lt Biceps: 2+, Rt Brachioradialis: 2+, Lt Brachioradialis: 2+, Rt Patellar: 1+, Lt Patellar: 1+, Rt Ankle: 0 and Lt Ankle: 0 Special Tests: negative Babinski Present Details: Patient able to stand up, has poor balance, impaired gait initiation. He has a significant length dependent sensory loss and a Charcot deformities of the feet with hammertoes, high arches. Results & Data Vital Signs (Past 12 Hours) Vital Signs Temp Pulse Pulse Resp BP Pulse Ox O2 Del Method 05/06/24 09:15 36.6 C 63 20 141/69 H 95 Room Air 05/06/24 08:44 150 H 05/06/24 08:28 Room Air 05/06/24 07:05 69 05/06/24 03:28 36.4 C L 57 L 18 168/73 H 96 Room Air 05/05/24 23:41 63 05/05/24 23:00 36.3 C L 82 18 138/73 94 Room Air 05/05/24 22:05 63 16 147/71 H 96 Room Air Laboratory Results WBC 11.88, hemoglobin 13.3, hematocrit 39.5, platelet count 174, sodium 138, potassium 3.5, BUN 14, creatinine 0.70, glucose 107, hemoglobin A1c 6.5, calcium 8.0, magnesium 1.8, AST 21, ALT 15, triglycerides 74, cholesterol 88, LDL 39, HDL [address] of the head negative for hemorrhage or acute process, there is a chronic left FLATBED DRIVER infarct, CTA of the head and neck unremarkable, no thrombus or occlusive lesion. No significant carotid stenosis. I independently reviewed these images. Echocardiogram is as described above. Coding Level of Care Code 37905 INT INP/OBS CARE 3/75MIN Diagnoses TIA (transient ischemic attack) G45.9 H/O: stroke with residual effects I69.30 Time Spent (min) 80 Comment Total time includes patient contact, chart review, counseling, note preparation
--- NOTE | 2024-05-06 11:28 | Electrocardiogram Report ---
Test Reason : Blood Pressure : / mmHG Vent. Rate : 068 BPM Atrial Rate : 068 BPM P-R Int : 182 ms QRS Dur : 114 ms QT Int : 410 ms P-R-T Axes : -20 -29 013 degrees QTc Int : 436 ms Sinus rhythm with occasional Premature ventricular complexes Abnormal ECG When compared with ECG of 25-JAN-2024 15:43, Premature atrial complexes are no longer Present QRS axis Shifted left Non-specific change in ST segment in Inferior leads Nonspecific T wave abnormality has replaced inverted T waves in Inferior leads Confirmed by Willian Hdez ([id number]) on 05/06/2024 11:28:19 AM Referred By: REFERRED SELF Confirmed By:Willem Hdez
[2024-05-06] MEDS: GADOBUTROL 65ML VIAL IV ONE (13:27)
[2024-05-06] MEDS: METOPROLOL SUCC 25MG EXT REL TAB PO SCH (14:10)
--- NOTE | 2024-05-06 14:47 | Magnetic Resonance Report ---
MR brain wo/w con HISTORY: 73 years-old Male ?CVA Acute stroke-like symptoms in a patient with history of chronic left occipital infarct. COMPARISON: Head CT 05/05/2024, brain MRI 05/08/2020. TECHNIQUE: Multiplanar and multisequence MRI of the brain was obtained with and without IV contrast. FINDINGS: No acute or subacute territorial infarct. There is a 7 mm focus of restricted diffusion within the pe riventricular left frontoparietal distribution on image 19 series 4. Encephalomalacia and gliosis is redemonstrated, associated with a chronic left occipital infarct. Ex-vacuo ventriculomegaly of the po sterior horn left lateral ventricle. Involutional changes with extensive chronic microvascular ischem ic disease. No acute intracranial hemorrhage, midline shift, abnormal extra-axial collection, hydroce phalus or intra-axial mass. Chronic subcentimeter cerebellar lacunar infarcts. Cerebral venous sinuses and major arterial flow voids appear patent. The skull, orbits and soft tissu es are unremarkable. No abnormal enhancement. IMPRESSION: 1. Subcentimeter acute lacunar infarct within the left periventricular frontoparietal distribution. 2. Involutional changes with advanced chronic microvascular ischemic disease. 3. 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 4. No abnormal enhancement. 5. Chronic cerebellar lacunar infarcts. ACT 112: Negative or not required by law. The above report was generated using voice recognition software. It may contain grammatical, syntax o r spelling errors. Dictated: 05/06/2024 1:42 PM Transcribed: 05/06/2024 1:51 PM Joel [id number] [email or web address] Electronically signed by: Tom Toney M.D. 05/06/2024 2:45 PM
--- NOTE | 2024-05-06 15:26 | Pharmacy Report ---
- Date of Service May 06, 2024 - Pharmacy CVA/TIA Medication Review Medications to Prevent Stroke handout has been added to the patients discharge packet. Antiplatelet(s) * aspirin 81 mg daily * plavix 75 mg daily Cholesterol * High intensity statin: atorvastatin 80 mg daily DVT Prophylaxis * SCDs ordered Therapeutic Anticoagulation * No history of Afib/Aflutter noted * Neurology recommending a 30-day mobile cardiac outpatient telemetry Type 2 Diabetes * Patient has T2DM and patient already prescribed a GLP-1 agonist * "Medications to prevent stroke" handout has already been added to the roman martinez's discharge packet, which instructs the patient to follow up with their outpatient provider to evaluate which diabetes medication with proven CVD benefit is best for them
--- NOTE | 2024-05-06 16:10 | Hospitalist Progress Note ---
Date of Service May 06, 2024 Assessment & Plan (1) Stroke-like symptoms: Plan: -Patient originally presented with RUE/RLE numbness and weakness on 05/05/2024. Patient reports no further symptoms -Reviewed neurology recommendations. -dual antiplatelet therapy, ASA 81 mg/day and clopidogrel 75mg/day x 3 weeks. - then d/c ASA and continue clopidogrel -outpatient 30 day mobile cardiac telemetry -Continue on atorvastatin 80mg/day -outpatient SBP goal up to 130mmHg -Brain MRI reviewed and discussed case with neurology. No change in their recommendations following results. -Echo reviewed - LV EF 40-405%. severe hypokinesis of inferior and posterior pate from base to mid ventricle. Mild mitral regurgitation and mild aortic regurgitation. -PT/OT notes reviewed. OT recommending inpatient rehab as he is not safe to return home or be at home alone. -hemoglobin A1c stable at 6.5 -Lipid panel WNL. -Check MRI brain -Check 2D echo with bubble (2) CAD (coronary artery disease): Plan: Chronic. Stable. No chest pain -Continue metoprolol 25mg PO daily. (3) Asymptomatic bacteriuria: Plan: -Patient afebrile, HD stable and non-toxic in appearance. -No urinary symptoms. He does have history of urethral stricture with incomplete bladder emptying s/p dilation in January. -Will hold off on treatment -Continue methenamine Hippurate 1gm PO BID for chronic suppression Plan Depression/Anxiety - chronic. stable -Continue Sertraline 50mg po qPM F/E/N - NSS at 100mL/hr x 1L, Mg x 1gm administered, regular diet as tolerated Ppx - SCDs to bilateral LE Code - Full Dispo - Admit to medical with telemetry Admission and Anticipated Discharge Date Admission Date: May 05, 2024 Subjective Patient seen and examined this morning. Patient reports that he was doing well today. He states that his symptoms at originally presented him to the ED have since resolved. He denies any numbness or weakness in his extremities. He does follow with neurology and cardiology outpatient. He denied chest pain or shortness of breath at time of encounter. Physical Exam 2 Constitutional: WD/WN, vitals as above Eyes: PERRL, conjunctivae normal, anicteric sclerae ENMT: external ear and nose normal, oropharynx normal Respiratory: normal respiratory effort, lungs clear to auscultation Cardiovascular: RRR, no murmur, no edema Neurologic: PERRL, EOMI, accommodation nl, no face palsy, no dysarthria Psychiatric: A+Ox3, euthymic affect Results & Data Results & Data Vital Signs (Past 12 Hours) Vital Signs Temp Pulse Pulse Resp BP Pulse Ox O2 Del Method 05/06/24 15:55 36.8 C 57 L 20 117/67 97 Room Air 05/06/24 11:40 36.5 C 77 20 117/70 96 Room Air 05/06/24 09:15 36.6 C 63 20 141/69 H 95 Room Air 05/06/24 08:44 150 H 05/06/24 08:28 Room Air 05/06/24 07:05 69 Laboratory Results 05/06/24 05:47 05/06/24 05:47 Diagnostic Findings Chest X-Ray 05/05/24 18:30 SINGLE VIEW CHEST CLINICAL HISTORY: Neurological deficit. Stroke like symptoms FINDINGS: An AP, portable, upright chest radiograph is compared to study dated 01/25/2024. The patient is status post midline sternotomy. The heart is enlarged noting atherosclerotic calcification of the thoracic aorta. There is pulmonary vascular congestion. There is a small right pleural effusion. Atelectasis is noted at both lung bases. No pneumothorax is seen. The skeletal structures are osteopenic. The bony thorax is grossly intact. IMPRESSION: 1. Cardiomegaly with pulmonary vascular congestion. 2. Small right pleural effusion. ACT 112: Negative or not required by law. Electronically signed by: Steve Dailey M.D. 05/05/2024 8:[address] 05/05/24 18:[address] OF THE BRAIN; CT ANGIOGRAM OF THE BRAIN; CT ANGIOGRAM OF THE NECK CLINICAL HISTORY: Neurological deficit. Stroke like symptoms. COMPARISON STUDY: MRI of the brain dated 05/08/2020. TECHNIQUE: Unenhanced axial CT scan of the brain is performed. Subsequently, following the IV administration of 120 of Optiray 320, CT angiogram of the head and neck was performed from the aortic arch to the vertex. Images are reviewed in the axial, sagittal, and coronal planes. 3-D MIPS images are created and assessed. IV contrast was administered without complication. All measurements were calculated based on NASCET criteria. A dose lowering technique was utilized adhering to the principles of ALARA. CT DOSE: 1434.25 mGy.cm FINDINGS: Brain parenchyma: Left occipital encephalomalacia is consistent with a remote insult. There is ex vacuo dilatation of the posterior horn of the left lateral ventricle. 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 There is no hemorrhage, mass effect, or evidence of acute territorial ischemia by CT criteria. A chronic lacunar infarct is noted in the anterior limb of the right internal capsule. There is also a tiny chronic lacunar infarct in the right thalamus. There is no evidence of enhancing mass lesion on the angiogram phase images. The ventricles, sulci, and cisterns are prominent secondary to change. Freed-white matter differentiation is preserved. No extra-axial fluid collection is seen. Thoracic aorta: There is atherosclerotic calcification of the thoracic aorta. Visualized portions of the thoracic aorta are normal in caliber. The aortic arch demonstrates standard 3-vessel anatomy. Right carotid arterial system: The right common carotid artery is widely patent, as are the right internal and external carotid arteries. Calcified plaque is seen in the carotid bulb. Left carotid arterial system: The left common carotid artery is widely patent, as are the left internal and external carotid arteries. Calcified plaque is seen in the carotid bulb. Vertebral arteries: The vertebral arteries are widely patent bilaterally noting right-sided dominance. Subclavian arteries: Widely patent bilaterally. Intracranial vasculature: There is atherosclerotic calcification of the cavernous carotid and vertebral arteries. The internal carotid arteries are patent at the skull base, as are the anterior and middle cerebral arteries bilaterally. The right A1 segment is diminutive. The vertebrobasilar system and posterior cerebral arteries are widely patent. The right vertebral artery is dominant. There is no aneurysm, high-grade stenosis, or focal vessel cut off seen throughout the intracranial circulation. Jugular veins: Patent bilaterally. Dural sinuses: Patent. Lung apices: Partially visualized upper lobe lung parenchyma appears clear. Soft tissues: The visualized pharyngeal soft tissues are normal in appearance noting angiographic phase technique. The oropharyngeal airway appears widely patent. The salivary and thyroid glands are normal in appearance. No cervical lymphadenopathy is seen. Skeletal structures: The skeletal structures are osteopenic. The calvarium appears intact. The cervical spine is maintained noting multilevel spondylosis. Midline sternotomy wires are observed. Orbits: The bony orbits are intact. Orbital contents are normal as visualized. Sinuses and mastoids: There is trace mucosal thickening in the left maxillary antrum. The remaining paranasal sinuses are clear. The mastoid air cells are well pneumatized. IMPRESSION: 1. There is no hemorrhage, mass effect, or evidence of acute territorial ischemia by CT criteria. 2. Unremarkable CT angiogram of the brain. 3. Unremarkable CT angiogram of the neck. ACT 112: Negative or not required by law. Electronically signed by: Steve Dailey M.D. 05/05/2024 6:59 PM Head CTA 05/05/24 18:[address] OF THE BRAIN; CT ANGIOGRAM OF THE BRAIN; CT ANGIOGRAM OF THE NECK CLINICAL HISTORY: Neurological deficit. Stroke like symptoms. COMPARISON STUDY: MRI of the brain dated 05/08/2020. TECHNIQUE: Unenhanced axial CT scan of the brain is performed. Subsequently, following the IV administration of 120 of Optiray 320, CT angiogram of the head and neck was performed from the aortic arch to the vertex. Images are reviewed in the axial, sagittal, and coronal planes. 3-D MIPS images are created and assessed. IV contrast was administered without complication. All measurements were calculated based on NASCET criteria. A dose lowering technique was utilized adhering to the principles of ALARA. CT DOSE: 1434.25 mGy.cm FINDINGS: Brain parenchyma: Left occipital encephalomalacia is consistent with a remote insult. There is ex vacuo dilatation of the posterior horn of the left lateral ventricle. 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 There is no hemorrhage, mass effect, or evidence of acute territorial ischemia by CT criteria. A chronic lacunar infarct is noted in the anterior limb of the right internal capsule. There is also a tiny chronic lacunar infarct in the right thalamus. There is no evidence of enhancing mass lesion on the angiogram phase images. The ventricles, sulci, and cisterns are prominent secondary to change. Freed-white matter differentiation is preserved. No extra-axial fluid collection is seen. Thoracic aorta: There is atherosclerotic calcification of the thoracic aorta. Visualized portions of the thoracic aorta are normal in caliber. The aortic arch demonstrates standard 3-vessel anatomy. Right carotid arterial system: The right common carotid artery is widely patent, as are the right internal and external carotid arteries. Calcified plaque is seen in the carotid bulb. Left carotid arterial system: The left common carotid artery is widely patent, as are the left internal and external carotid arteries. Calcified plaque is seen in the carotid bulb. Vertebral arteries: The vertebral arteries are widely patent bilaterally noting right-sided dominance. Subclavian arteries: Widely patent bilaterally. Intracranial vasculature: There is atherosclerotic calcification of the cavernous carotid and vertebral arteries. The internal carotid arteries are patent at the skull base, as are the anterior and middle cerebral arteries bilaterally. The right A1 segment is diminutive. The vertebrobasilar system and posterior cerebral arteries are widely patent. The right vertebral artery is dominant. There is no aneurysm, high-grade stenosis, or focal vessel cut off seen throughout the intracranial circulation. Jugular veins: Patent bilaterally. Dural sinuses: Patent. Lung apices: Partially visualized upper lobe lung parenchyma appears clear. Soft tissues: The visualized pharyngeal soft tissues are normal in appearance noting angiographic phase technique. The oropharyngeal airway appears widely patent. The salivary and thyroid glands are normal in appearance. No cervical lymphadenopathy is seen. Skeletal structures: The skeletal structures are osteopenic. The calvarium appears intact. The cervical spine is maintained noting multilevel spondylosis. Midline sternotomy wires are observed. Orbits: The bony orbits are intact. Orbital contents are normal as visualized. Sinuses and mastoids: There is trace mucosal thickening in the left maxillary antrum. The remaining paranasal sinuses are clear. The mastoid air cells are well pneumatized. IMPRESSION: 1. There is no hemorrhage, mass effect, or evidence of acute territorial ischemia by CT criteria. 2. Unremarkable CT angiogram of the brain. 3. Unremarkable CT angiogram of the neck. ACT 112: Negative or not required by law. Electronically signed by: Steve Dailey M.D. 05/05/2024 6:59 PM Neck CTA 05/05/24 18:[address] OF THE BRAIN; CT ANGIOGRAM OF THE BRAIN; CT ANGIOGRAM OF THE NECK CLINICAL HISTORY: Neurological deficit. Stroke like symptoms. COMPARISON STUDY: MRI of the brain dated 05/08/2020. TECHNIQUE: Unenhanced axial CT scan of the brain is performed. Subsequently, following the IV administration of 120 of Optiray 320, CT angiogram of the head and neck was performed from the aortic arch to the vertex. Images are reviewed in the axial, sagittal, and coronal planes. 3-D MIPS images are created and assessed. IV contrast was administered without complication. All measurements were calculated based on NASCET criteria. A dose lowering technique was utilized adhering to the principles of ALARA. CT DOSE: 1434.25 mGy.cm FINDINGS: Brain parenchyma: Left occipital encephalomalacia is consistent with a remote insult. There is ex vacuo dilatation of the posterior horn of the left lateral ventricle. 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 There is no hemorrhage, mass effect, or evidence of acute territorial ischemia by CT criteria. A chronic lacunar infarct is noted in the anterior limb of the right internal capsule. There is also a tiny chronic lacunar infarct in the right thalamus. There is no evidence of enhancing mass lesion on the angiogram phase images. The ventricles, sulci, and cisterns are prominent secondary to change. Freed-white matter differentiation is preserved. No extra-axial fluid collection is seen. Thoracic aorta: There is atherosclerotic calcification of the thoracic aorta. Visualized portions of the thoracic aorta are normal in caliber. The aortic arch demonstrates standard 3-vessel anatomy. Right carotid arterial system: The right common carotid artery is widely patent, as are the right internal and external carotid arteries. Calcified plaque is seen in the carotid bulb. Left carotid arterial system: The left common carotid artery is widely patent, as are the left internal and external carotid arteries. Calcified plaque is seen in the carotid bulb. Vertebral arteries: The vertebral arteries are widely patent bilaterally noting right-sided dominance. Subclavian arteries: Widely patent bilaterally. Intracranial vasculature: There is atherosclerotic calcification of the cavernous carotid and vertebral arteries. The internal carotid arteries are patent at the skull base, as are the anterior and middle cerebral arteries bilaterally. The right A1 segment is diminutive. The vertebrobasilar system and posterior cerebral arteries are widely patent. The right vertebral artery is dominant. There is no aneurysm, high-grade stenosis, or focal vessel cut off seen throughout the intracranial circulation. Jugular veins: Patent bilaterally. Dural sinuses: Patent. Lung apices: Partially visualized upper lobe lung parenchyma appears clear. Soft tissues: The visualized pharyngeal soft tissues are normal in appearance noting angiographic phase technique. The oropharyngeal airway appears widely patent. The salivary and thyroid glands are normal in appearance. No cervical lymphadenopathy is seen. Skeletal structures: The skeletal structures are osteopenic. The calvarium appears intact. The cervical spine is maintained noting multilevel spondylosis. Midline sternotomy wires are observed. Orbits: The bony orbits are intact. Orbital contents are normal as visualized. Sinuses and mastoids: There is trace mucosal thickening in the left maxillary antrum. The remaining paranasal sinuses are clear. The mastoid air cells are well pneumatized. IMPRESSION: 1. There is no hemorrhage, mass effect, or evidence of acute territorial ischemia by CT criteria. 2. Unremarkable CT angiogram of the brain. 3. Unremarkable CT angiogram of the neck. ACT 112: Negative or not required by law. Electronically signed by: Steve Dailey M.D. 05/05/2024 6:59 PM Brain MRI 05/06/24 23:01 MR brain wo/w con HISTORY: 73 years-old Male ?CVA Acute stroke-like symptoms in a patient with history of chronic left occipital infarct. COMPARISON: Head CT 05/05/2024, brain MRI 05/08/2020. TECHNIQUE: Multiplanar and multisequence MRI of the brain was obtained with and without IV contrast. FINDINGS: No acute or subacute territorial infarct. There is a 7 mm focus of restricted diffusion within the periventricular left frontoparietal distribution on image 19 series 4. Encephalomalacia and gliosis is redemonstrated, associated with a chronic left occipital infarct. Ex-vacuo ventriculomegaly of the posterior horn left lateral ventricle. Involutional changes with extensive chronic microvascular ischemic disease. No acute intracranial hemorrhage, midline shift, abnormal extra-axial collection, hydrocephalus or intra-axial mass. Chronic subcentimeter cerebellar lacunar infarcts. Cerebral venous sinuses and major arterial flow voids appear patent. The skull, orbits and soft tissues are unremarkable. No abnormal enhancement. IMPRESSION: 1. Subcentimeter acute lacunar infarct within the left periventricular frontoparietal distribution. 2. Involutional changes with advanced chronic microvascular ischemic disease. 3. Chronic left [employer] infarct. 4. No abnormal enhancement. 5. Chronic cerebellar lacunar infarcts. ACT 112: Negative or not required by law. The above report was generated using voice recognition software. It may contain grammatical, syntax or spelling errors. Dictated: 05/06/2024 1:42 PM Transcribed: 05/06/2024 1:51 PM Joel [id number] [email or web address] Electronically signed by: Tom Toney M.D. 05/06/2024 2:45 PM PG Care Time/CCT Total # of Minutes Spent Total Time Spent with Patient: Total time spent is greater than 50% in coordination of care (as documented) at patient's floor/unit and/or counseling patient: Coding Level of Care Code 41057 SUB INP/OBS CARE 3/50MIN Diagnoses Stroke-like symptoms R29.90 Coronary artery disease involving [place] coronary artery of [place] heart without angina pectoris I25.10 Coronary Disease-Associated Artery/Lesion type: [place] artery [place] vs. transplanted heart: [place] heart Associated angina: without angina Asymptomatic bacteriuria R82.71 (2) CAD (coronary artery disease) Coronary Disease-Associated Artery/Lesion type: [place] artery [place] vs. transplanted heart: [place] heart Associated angina: without angina Qualified Code(s): I25.10 - Atherosclerotic heart disease of [place] coronary artery without angina pectoris
[2024-05-07 07:25] LABS: Basophils # (auto) 0.08 K/uL (0.00-0.20); Basophils % (auto) 0.7 %; Eosinophils # (auto) 0.23 K/uL (0.00-0.50); Hematocrit (blood only) 41.1 % (42.0-52.0); Hemoglobin 13.8 g/dl (14.0-18.0); Immature Granulocytes # (auto) 0.03 K/uL (0.01-0.20); Immature Granulocytes % (auto) 0.3 %; Lymphocytes # (auto) 3.31 K/uL (1.20-3.40); Lymphocytes % (auto) 28.5 %; Mean Corpuscular Hemoglobin 29.5 pg (25.0-34.0); Mean Corpuscular Hgb Conc 33.6 g/dL (32.0-36.0); Mean Corpuscular Volume 87.8 fL (80.0-100.0); Mean Platelet Volume 11.1 fL (9.4-12.4); Monocytes # (auto) 1.18 K/uL (0.11-0.59); Monocytes % (auto) 10.2 %; Neutrophils # (auto) 6.77 K/uL (1.40-6.50); Neutrophils % (auto) 58.3 %; Platelet Count 184 K/uL (130-400); RDW Coefficient of Variation 13.2 % (11.5-14.5); RDW Standard Deviation 42.3 fL (36.4-46.3); Red Blood Count 4.68 M/uL (4.70-6.10)
[2024-05-07 07:44] LABS: BUN Creatinine Ratio 16.5 (10-20); Creatinine Clr Calc Pharmacy 99.3 ml/min; Est GFR (African American) 103.2 ml/min; Est GFR (Non-African American) 89.1 ml/min; Potassium 3.8 mmol/L (3.5-5.1)
[2024-05-07] MEDS ORDERED: STROKE PATIENT DISCHARGE STA (12:26)
--- NOTE | 2024-05-07 12:27 | Discharge Summary ---
Date of Service May 07, 2024 Admission HPI Per Admitting Provider Jose Roberts is a pleasant 73yo right-handed male with history of DM, HLP, CAD presenting with stroke-like symptoms. Patient was in his usual state of health until this evening around 17:00 when he developed numbness, tingling and weakness of the RUE and RLE. 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 He tried to get up and walk and noted that his right leg felt numb and he couldn't lift it to ambulate. EMS was called and he was brought to the ER. Stroke-Alert was activated and patient was to receive TNKase. However, his symptoms were steadily improving so TNKase was not administered. Patient feels that he continues to improve now and is near normal. He had a slight headache yesterday which improved by drinking water. Otherwise no complaints. He denies fever, chills, cough, SOB, chest pain, palpitations, abdominal pain, nausea, vomiting or diarrhea. No headache currently. No speech deficits or visual impairment. Patient had an NSTEMI in 05/2008 s/p 2V CABG. His post-operative course was complicated by VT/VF arrest as well as atrial fibrillation. 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 In the ER he has been afebrile, HD stable ER Course: Plavix 300mg NSS x 500mL Mag x 1gm Principal Diagnosis Stroke like symptoms Discharge Exam Constitutional WD/WN, vitals as above Eyes PERRL, conjunctivae normal, anicteric sclerae ENMT external ear and nose normal, oropharynx normal Respiratory normal respiratory effort, lungs clear to auscultation Cardiovascular RRR, no murmur, no edema Neurologic PERRL, EOMI, accommodation nl, no face palsy, no dysarthria Psychiatric A+Ox3, euthymic affect Discharge Data Allergies Allergy/AdvReac Type Severity Reaction Status Date / Time No Known Allergies Allergy Verified 05/05/24 19:57 Consultations 05/05/24 19:50 ED Decision to Admit Stat 05/06/24 07:48 Consult Neurology Routine Ordered Studies Chest X-Ray 05/05/24 18:30 SINGLE VIEW CHEST CLINICAL HISTORY: Neurological deficit. Stroke like symptoms IMPRESSION: 1. Cardiomegaly with pulmonary vascular congestion. 2. Small right pleural effusion. ACT 112: Negative or not required by law. Electronically signed by: Steve Dailey M.D. 05/05/2024 8:[address] 05/05/24 18:[address] OF THE BRAIN; CT ANGIOGRAM OF THE BRAIN; CT ANGIOGRAM OF THE NECK CLINICAL HISTORY: Neurological deficit. Stroke like symptoms. COMPARISON STUDY: MRI of the brain dated 05/08/2020. IMPRESSION: 1. There is no hemorrhage, mass effect, or evidence of acute territorial ischemia by CT criteria. 2. Unremarkable CT angiogram of the brain. 3. Unremarkable CT angiogram of the neck. ACT 112: Negative or not required by law. Electronically signed by: Steve Dailey M.D. 05/05/2024 6:59 PM Head CTA 05/05/24 18:[address] OF THE BRAIN; CT ANGIOGRAM OF THE BRAIN; CT ANGIOGRAM OF THE NECK CLINICAL HISTORY: Neurological deficit. Stroke like symptoms. COMPARISON STUDY: MRI of the brain dated 05/08/2020 IMPRESSION: 1. There is no hemorrhage, mass effect, or evidence of acute territorial ischemia by CT criteria. 2. Unremarkable CT angiogram of the brain. 3. Unremarkable CT angiogram of the neck. ACT 112: Negative or not required by law. Electronically signed by: Steve Dailey M.D. 05/05/2024 6:59 PM Neck CTA 05/05/24 18:[address] OF THE BRAIN; CT ANGIOGRAM OF THE BRAIN; CT ANGIOGRAM OF THE NECK CLINICAL HISTORY: Neurological deficit. Stroke like symptoms. COMPARISON STUDY: MRI of the brain dated 05/08/2020. IMPRESSION: 1. There is no hemorrhage, mass effect, or evidence of acute territorial ischemia by CT criteria. 2. Unremarkable CT angiogram of the brain. 3. Unremarkable CT angiogram of the neck. ACT 112: Negative or not required by law. Electronically signed by: Steve Dailey M.D. 05/05/2024 6:59 PM Brain MRI 05/06/24 23:01 MR brain wo/w con HISTORY: 73 years-old Male ?CVA Acute stroke-like symptoms in a patient with history of chronic left occipital infarct. COMPARISON: Head CT 05/05/2024, brain MRI 05/08/2020. IMPRESSION: 1. Subcentimeter acute lacunar infarct within the left periventricular frontoparietal distribution. 2. Involutional changes with advanced chronic microvascular ischemic disease. 3. Chronic left MASTER BLACK BELT infarct. 4. No abnormal enhancement. 5. Chronic cerebellar lacunar infarcts. ACT 112: Negative or not required by law. The above report was generated using voice recognition software. It may contain grammatical, syntax or spelling errors. Dictated: 05/06/2024 1:42 PM Transcribed: 05/06/2024 1:51 PM Joel [id number] [email or web address] Electronically signed by: Tom Toney M.D. 05/06/2024 2:45 PM Vital Signs Temp 36.8 C 05/07/24 11:37 Pulse 60 05/07/24 11:37 Resp 14 05/07/24 11:37 BP 133/70 05/07/24 11:37 Pulse Ox 96 05/07/24 11:37 O2 Del Method Room Air 05/07/24 11:37 05/07/24 06:45 05/07/24 06:45 Hospital Course (1) Stroke-like symptoms: Cerebral infarction -Patient originally presented with RUE/RLE numbness and weakness on 05/05/2024. Patient reports no further symptoms -Reviewed neurology recommendations. -dual antiplatelet therapy, ASA 81 mg/day and clopidogrel 75mg/day x 3 weeks. - then d/c ASA and continue clopidogrel -outpatient 30 day mobile cardiac telemetry -Continue on atorvastatin 80mg/day -outpatient SBP goal up to 130mmHg -Brain MRI reviewed and discussed case with neurology. No change in their recommendations following results. -Echo reviewed - LV EF 40-45%. severe hypokinesis of inferior and posterior pate from base to mid ventricle. Mild mitral regurgitation and mild aortic regurgitation. -PT/OT notes reviewed. OT recommending inpatient rehab as he is not safe to return home or be at home alone. -discharged home with rolling walker script to help with ambulatory needs at home. -Patient and his discussed inpatient rehab and did not believe he needed it at this time. He will be discharged home with home health orders. -hemoglobin A1c stable at 6.5 -Lipid panel WNL. (2) CAD (coronary artery disease): Chronic. Stable. No chest pain -Continue metoprolol 25mg PO daily. (3) Asymptomatic bacteriuria: -Patient afebrile, HD stable and non-toxic in appearance. -No urinary symptoms. He does have history of urethral stricture with incomplete bladder emptying s/p dilation in January. -Will hold off on treatment -Continue methenamine Hippurate 1gm PO BID for chronic suppression Plan Depression/Anxiety - chronic. stable -Continue Sertraline 50mg po qPM F/E/N - NSS at 100mL/hr x 1L, Mg x 1gm administered, regular diet as tolerated Ppx - SCDs to bilateral LE Code - Full Dispo - Admit to medical with telemetry Total Time Total Time Spent Total Time Spent (In Minutes): 40 minutes Discharge Plan Discharge Items Patient Disposition: Home - Home Health Services Reason For Visit: TIA/CVA Discharge Diagnosis: Stroke Like Symptoms Activity: As commented below Activity Comment: gradually resume previous activity as recommended by home health therapists Non-emergency contact: Primary Care Provider Call non-emergency contact if: you have any medication questions and your symptoms worsen Follow-up/Referrals: Jim Sandoval, [Primary Care Provider] - Diet: Carb Consistent or DM2 Addtl Attending Provider Instructions: Daniel Armando, You were hospitalized for stroke like symptoms. You had a CAT scan of your head that was negative and a MRI of your brain that did reveal an acute subcentimeter acute lacunar infarct. We did discuss this with your neurologist who did not have any change of your treatment plan for you based on these results. Recommendations have been listed below including the neurologists recommendations as well. -Upon discharge, we recommend taking aspirin 81mg/day and Clopidogrel 75mg/day for 3 weeks. -After 3 weeks, you may stop the aspirin and continue on clopidogrel. -We recommend you continue on atorvastatin 80mg/day. -We recommend that you continue on metoprolol 25mg/day as previously prescribed. -Continue on methenamine hippurate 1gm twice daily and sertraline 50mg daily as previously prescribed. -We are setting up home health for you to receive additional care at home to get your strength back. -We have also placed a script for a rolling walker device to assist with ambulation at home. -Upon discharge, please follow up with your neurology and cardiology providers. The neurologist had recommended to obtain a 30 day cardiac monitoring device. -Please follow up with PCP within 1-2 weeks of discharge. Sincerely, Ashley Fletcher PA-C Pending Studies at Discharge: No Stand-Alone Forms: [facility], Smoking Cessation, Medications to Prevent Stroke Medications and DC Order Prescriptions: New clopidogrel 75 mg Tablet 75 mg PO QAM Qty: 30 0RF Continued insulin glargine [Basaglar KwikPen U-100 Insulin] 100 unit/mL (3 mL) insulin pen 20 unit subcut HS Qty: 15 3RF Rx Instructions: INJECT 20 UNITS SUBCUTANEOUSLY ONCE DAILY atorvastatin 80 mg tablet 80 mg PO HS Qty: 90 3RF sertraline 50 mg tablet 50 mg PO QPM 90 Days Qty: 90 1RF methenamine hippurate 1 gram tablet 1 g PO BID Qty: 180 3RF fish oil-dha-epa 1,200-144-216 mg capsule 1 cap PO BID calcium carbonate-vitamin D3 500mg (1,250mg) -600 unit tablet 1 tab PO BID cholecalciferol (vitamin D3) 1,000 unit capsule 1,000 units PO QPM metoprolol succinate 25 mg tablet extended release 24 hr 25 mg PO DAILY Qty: 90 3RF Rx Instructions: PER PT'S SPOUSE "ONLY GAVE HIM 12.5 MG THIS MORNING". dutasteride 0.5 mg capsule 0.5 mg PO QPM metformin 500 mg tablet extended release 24 hr See Rx Instructions .ROUTE .COMPLEX Rx Instructions: TAKES 500mg in AM and 1000mg in PM; tirzepatide 10 mg/0.5 mL pen injector 10 mg subcut WK Patient Comments: weekly on Sundays, last dose 01/21/2024 Rx Instructions: THURSDAYS----HAVE ISSUES GETTING FROM PHARMACY aspirin 81 mg Tablet,Delayed Release (Dr/Ec) 81 mg PO DAILY Qty: 21 0RF No Action (DME) OneTouch Verio test strips Strip See Dose Instructions .ROUTE .MEDSUPPLY Qty: 100 5RF Rx Instructions: Test twice daily (DME) OneTouch Verio test strips Strip See Dose Instructions .ROUTE .MEDSUPPLY Qty: 100 5RF Rx Instructions: Test twice daily (DME) pen needle, diabetic 32 gauge x /32" needle See Dose Instructions .ROUTE .MEDSUPPLY Qty: 100 3RF Dose Instruction: As directed Rx Instructions: As directed Relion Pen [place] #50-(4mm x 32G) Discharge Orders: Discharge Order (Routine); Ordered 05/07/24 Ordered By: Ashley Pires/Other Patient Handouts: Managing Type 2 Diabetes Admission Data Admit Date/Time: 05/05/24 20:21 Attending Provider: Ryan José Admit Provider: Es Sandhu Primary Care Provider: Jim Sandoval Other Providers: Jim Hernandes; [facility] Other Interventions: Discharge Summary Assessment (RN) Last Done: 05/07/24 12:59 Supervising Physician Co-Signing Physician Notes During face to face encounter, I obtained a brief physical examination, discussed hospital stay with patient and discharge instructions with patient. I discussed discharge plan of care with KASSY Fletcher. I reviewed above note and agree with it except for the following: Patient admitted with an acute lacunar infarct noted on MRI. Consulted Neuro: appreciate input: Agree with dual antiplatelet therapy, aspirin 81 mg/day and clopidogrel 75 mg/day for 3 weeks. Would then discontinue aspirin and continue with clopidogrel 75 mg/day. Would recommend 30-day mobile cardiac outpatient telemetry. will defer to PCP Continue with atorvastatin 80 mg/day. Coding Level of Care Code 28665 INP/OBS DISCH >30 MIN Diagnoses Stroke-like symptoms R29.90 Coronary artery disease involving [place] coronary artery of [place] heart without angina pectoris I25.10 Associated angina: without angina Coronary Disease-Associated Artery/Lesion type: [place] artery [place] vs. transplanted heart: [place] heart Asymptomatic bacteriuria R82.71
--- NOTE | 2024-05-09 10:38 | Pharmacy Report ---
Pharmacist Stroke Counseling - Date of Service May 09, 2024 - Scope: Pharmacy has been consulted to provide medication discharge counseling for this patient admitted with ischemic stroke as per the Pharmacist Discharge Counseling for Stroke Patients Protocol. - Medications on Discharge: Home Medications Medication Instructions Recorded Confirmed fish oil-dha-epa 1,200 mg-144 1 cap PO BID 05/18/19 05/05/24 mg-216 mg capsule calcium carbonate 500 mg-vitamin 1 tab PO BID 08/29/19 05/05/24 D3 15 mcg (600 unit) tablet cholecalciferol (vitamin D3) 25 1,000 units PO QPM 08/29/19 05/05/24 mcg (1,000 unit) capsule dutasteride 0.5 mg capsule 0.5 mg PO QPM 01/25/24 05/05/24 metformin 500 mg tablet,extended See Rx Instructions .Route .COMPLEX 01/25/24 05/05/24 release 24 hr tirzepatide 10 mg/0.5 mL 10 mg subcut WK 05/05/24 05/05/24 subcutaneous pen injector New Rx's Medication Instructions Recorded blood sugar diagnostic (OneTouch #100 ea 05/24/23 Verio test strips) blood sugar diagnostic (OneTouch #100 ea 05/24/23 Verio test strips) insulin glargine 100 unit/mL (3 20 unit (0.2 mL) subcut HS #15 mL 07/13/23 mL) subcutaneous pen (Basaglar KwikPen U-100 Insulin) pen needle, diabetic 32 gauge x #100 ea 12/18/2332" atorvastatin 80 mg tablet 80 mg PO HS #90 tabs 12/25/23 sertraline 50 mg tablet 50 mg PO QPM 90 days #90 tabs 02/12/24 methenamine hippurate 1 gram tablet 1 g PO BID #180 tabs 03/04/24 metoprolol succinate 25 mg 25 mg PO DAILY #90 tabs 04/11/24 tablet,extended release 24 hr aspirin 81 mg tablet,delayed 81 mg PO DAILY #21 tabs 05/07/24 release clopidogrel 75 mg tablet 75 mg PO QAM #30 tabs 05/07/24 - Action: The above medications, specifically ones for stroke treatment/prophylaxis, have been reviewed in detail with the patient and/or patient telephone sales representative(s) prior to discharge. This includes indication, common adverse reactions, drug interactions, and medication administration. Medication counseling has been employed using the teach-back method to ensure understanding. - Outcome: The patient and/or patient telephone sales representative(s) have demonstrated understanding of the medications. Patient did not have any follow up appointments scheduled - aware to contact Dr Jim Sandoval for appointment. Patient was also only given Rx for 21 days of Plavix, which should be ongoing (Aspirin DC after 3 weeks of KAREEM), aware to contact us if she is unable to get follow up appointment within 3 weeks to ensure we get her another Rx for ongoing Plavix. Thank you for allowing pharmacy to be involved in the care of this patient. Please call [phone] with any additional questions
== END 2024-05-07 14:54 | disposition home health service (06) | DRG 65 ==
LOC: ED 18:32 → SUATTDRO 20:21 → 2W 20:21
DX: E11.610 Type 2 diabetes mellitus with diabetic neuropathic arthropathy; Z79.899 Other long term (current) drug therapy; I67.89 Other cerebrovascular disease; Z79.4 Long term (current) use of insulin; R82.71 Bacteriuria; Z79.84 Long term (current) use of oral hypoglycemic drugs; I25.2 Old myocardial infarction; F01.A0 Vascular dementia, mild, without behavioral disturbance, psychotic disturbance, mood disturbance, and anxiety; E11.42 Type 2 diabetes mellitus with diabetic polyneuropathy; Z79.82 Long term (current) use of aspirin; E78.5 Hyperlipidemia, unspecified; R26.9 Unspecified abnormalities of gait and mobility; I63.9 Cerebral infarction, unspecified; H53.421 Scotoma of blind spot area, right eye; G81.91 Hemiplegia, unspecified affecting right dominant side; F32.A Depression, unspecified; Z95.1 Presence of aortocoronary bypass graft; I25.10 Atherosclerotic heart disease of native coronary artery without angina pectoris; F41.9 Anxiety disorder, unspecified

== ENCOUNTER 2025-08-28 10:18 | Observation (INO) ==
--- NOTE | 2025-08-28 10:35 | History & Physical Bridge Note ---
Date of Service August 28, 2025 History & Physical Bridge Note I have examined the patient, reviewed the History & Physical and in the interval since the performance of the History & Physical I have noted the following changes of clinical significance: no changes noted
--- NOTE | 2025-08-28 10:36 | Pre Anesthesia Assessment ---
Date of Service August 28, 2025 Pre Sedation Assessment Cardiovascular + regular rate Respiratory + respiratory effort normal Pre-Sedation Airway Assessment Smoking Status: Never smoker Hx Sleep Apnea: No Hx Difficult Intubation: No Short, Thick Neck: No Thyromental Distance: > or= 3.5 Finger Breadths Oral Cavity: + WNL Mallampati Class: III Procedure Planning Contraindications for Sedation: none Current Medications Reviewed: Yes Notes The planned sedation has been discussed with the patient. Informed Consent was obtained. I have identified the patient, determined the appropriateness of sedation and have assessed the patient immediately prior to the procedure. All medicine(s) and interventions are by my order.
[2025-08-28] MEDS: BUPIVACAINE 0.25% PF 30 ML VIAL ONE (11:22)
[2025-08-28] MEDS: LIDOCAINE 1% LOCAL 20 ML VIAL ONE (11:22)
[2025-08-28] MEDS: VANCOMYCIN HCL 1000MG/20ML VIAL ONE (11:22)
[2025-08-28] MEDS: WATER, STERILE FOR INJ 10 ML VIAL ONE (11:23)
[2025-08-28] MEDS: ceFAZolin 330 MG/ML 1 GM VIAL ONE (11:23)
--- NOTE | 2025-08-28 11:55 | Electrophysiology Report ---
Date of Service August 28, 2025 Electrophysiology Procedure Electrophysiology Procedure Report Procedure performed: Implantation of dual-chamber ICD Staff library technical assistant: Willian Hdez MD Indication: The patient is a 75-year-old gentleman with a history of reduced LV systolic function. Also recently noted to have sustained ventricular tachycardia. As such, he was felt to be a good candidate for an ICD as secondary prevention against sudden cardiac . Procedure in detail: The patient was informed of the risks benefits and alternatives to the intended procedure and she wished to proceed. He was taken to the electrophysiology suite in a fasting state. A preoperative antibiotic had been administered. The patient was monitored electrocardiographically throughout today's procedure and conscious sedation was administered per protocol. The left upper pectoral area was prepped and draped in usual sterile fashion. This area was anesthetized using subcutaneous administration of a xylocaine solution. An incision was made at this site and carried down to the prepectoralis fascia using sharp dissection. Electrocautery was also employed for dissection as well as for hemostasis. A device pocket was fashioned tissues above the pectoralis muscle. Subsequent to this maneuver the left axillary vein was accessed using modified Seldinger technique. A sheath was placed over guidewire and used to facilitate passage of the ICD lead to the right ventricular apex under fluoroscopic guidance. Adequate sensing and threshold parameters were obtained prior to fixation to the endocardium. The proximal portion of the lead was then sutured the prepectoralis fascia using nonabsorbable suture. A sheath was placed over the remaining guidewire and used to facilitate passage of a pacing lead to the right atrium under fluoroscopic guidance. Adequate sensing and threshold parameters were obtained prior to active fixation of this lead to the endocardial surface. The proximal portion of the leads were then sutured the prepectoral fascia using nonabsorbable suture. The device pocket was irrigated with antibiotic solution. The leads were then attached to the device. The device and leads were then placed in the pocket and pocket was closed in 3 layers of absorbable suture. Steri-Strips and sterile dressing were applied. The device was tested noninvasively prior to conclusion the procedure. The patient tolerated procedure well there no immediate complications. Equipment used: New pulse generator: Scale Adjuster [employer]. Model number: [id number] serial number [id number] Right atrial lead: Scale Adjuster Medtronic. Model number: [id number] serial number [id number] Right ventricular lead: Scale Adjuster Medtronic. Model number: 6935M serial number [id number] Measured data: Right atrial lead: P waves measured 1.8 mV. Pacing threshold was 2 V at 0.4 ms with a pacing Martinez of 513 ohms Right ventricular lead: R waves measured 7.5 mV. Pacing threshold 0.5 V at 0.4 ms with a pacing Martinez of 551 ohms Impression: Successful implantation of dual-chamber ICD MNPG Electrophysiology codes ICD Procedure 1: ICD: 07908 Insert single or dual ICD system PG Moderate Sedation Codes Moderate Sedation Codes Procedure 1: Sedation/Anesthesia: 72407 Mod Sedation by the same physician;Init15 Min Child Age 5 & Up Procedure 2: Sedation/Anesthesia: 63274 Mod Sedation by the same physician; Ea [id number] Minutes
[2025-08-28] MEDS ORDERED: ACETAMINOPHEN 325 MG TAB PO PRN (11:56)
[2025-08-28] MEDS: MIDAZOLAM HCL 5 MG/ML 1 ML VIAL ONE (11:56)
--- NOTE | 2025-08-28 11:56 | Post Anesthesia Assessment ---
Date of Service August 28, 2025 Post Sedation Assessment Vital Signs Temp Pulse Resp BP Pulse Ox O2 Del Method 08/28/25 10:36 36.8 C 72 16 119/50 L 99 Room Air Recovery Score Activity: Moves 4 extremities Respiration: Deep Breath/Cough Circulation: +/-20% PreAnes Value Consciousness: Arouseable (by name) Oxygen Saturation: O2 needed for >90% Discharge Sedation Level of Care: Fast Track Phase II Post Sedation Plan On clinical assessment, the patient appears to have tolerated the sedation without complications. Patient is recovering as anticipated. Patient will continue to be monitored by nursing and may be discharged when sedation discharge criteria are met per below protocol. Upon Completions of procedure up to 15 minutes continue every 5 minute vital signs and the P.A.R. score; then discharge to a Phase I or Fast Track to Phase II per the following guidelines: * Discharge Patient to appropriate Phase II area if PAR is 8 or greater or return to pre- procedure baseline. The post - procedure orders will be as directed. * If PAR score is less than 8 or not return to pre-procedure baseline then patient will follow Phase I monitoring till PAR is reached for Phase II. The Phase I may be done in procedure room or may call to secure a Phase I area. * If naloxone or flumazenil are used for reversal, hold in Phase I for continued monitoring from when last reversal dose was given for a minimum of 60 minutes or longer pending the nurse and/or physician discretion of patient condition before discharge to Phase II. Please call the Sedation Physician to re-evaluate and complete post-note for discharge to Phase II area. Do NOT discharge from procedure sedation or Phase 1 until post- sedation evaluation note is complete by procedure /sedation MD Sedation Discharge Instructions to be given to the patient at discharge to home.
[2025-08-28] MEDS ORDERED: GLUCAGON FOR INJ 1 MG VIAL SQ PRN (16:30)
[2025-08-28] MEDS ORDERED: DEXTROSE 50% 50 ML SYRINGE IV PRN (16:30)
[2025-08-28] MEDS ORDERED: GLUCOSE 10 TAB/TUBE PO PRN (16:30)
[2025-08-28] MEDS ORDERED: GLUCOSE 40% GEL 15 GM TUBE PO PRN (16:30)
[2025-08-28] MEDS ORDERED: CARBOHYDRATES FOR HYPOGLYCEMIA PO PRN (16:30)
--- NOTE | 2025-08-28 18:19 | Electrocardiogram Report ---
Test Reason : Blood Pressure : */* mmHG Vent. Rate : 71 BPM Atrial Rate : * BPM P-R Int : * ms QRS Dur : 162 ms QT Int : 480 ms P-R-T Axes : * -60 40 degrees QTcB Int : 521 ms Sinus rhythm with 1st degree AV block Right bundle branch block Left anterior fascicular block Bifascicular block Abnormal ECG Confirmed by Willian Hdez ([id number]) on 08/28/2025 6:19:13 PM Referred By: Willian Hdez Confirmed By: Willian Hdez
[2025-08-28] MEDS: LANTUS PER UNIT CHARGE SC SCH (20:04)
[2025-08-28] MEDS: AMIODARONE 200 MG TAB PO SCH (20:05)
[2025-08-28] MEDS: VALSARTAN/SACUBITRIL 26/24MG TAB PO SCH (20:06)
[2025-08-28] MEDS: METHENAMINE HIPPURATE 1 GM TAB PO SCH (20:06)
[2025-08-28] MEDS: ATORVASTATIN 40 MG TAB PO SCH (20:06)
[2025-08-28] MEDS: SERTRALINE HCL 50 MG TABLET PO SCH (20:07)
[2025-08-29 03:12] VITALS: O2SAT 95
[2025-08-29 07:26] VITALS: BP 122/64; RESP 20; TEMP 98.1
--- NOTE | 2025-08-29 07:34 | XRay Report ---
EXAM: XR chest 2V PA/lateral CLINICAL HISTORY: EXACT TIME ORDERED Evaluate for pneumothorax. TECHNIQUE: An X-ray image of the chest was obtained in the AP projection. 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 FINDINGS: There is blunting of the right costophrenic angle, suggestive of right-sided pleural effusion. The remainder of the lungs is clear. The cardiomediastinal silhouette is within normal limits. No acute osseous abnormality is seen. Cardiac pacemaker seen in left chest wall with its lead in situ. Post sternotomy sutures. IMPRESSION: Blunting of the right costophrenic angle, suggestive of right-sided pleural effusion- stable. Left-sided basal congestion/pleural effusion has resolved. Electronically signed by Weston Lin 08-29-2025 07:33 AM
[2025-08-29] MEDS: FINASTERIDE 5 MG TAB PO SCH (08:59)
[2025-08-29] MEDS: METOPROLOL SUCC 25MG EXT REL TAB PO SCH (08:59)
[2025-08-29] MEDS: SPIRONOLACTONE 25 MG TAB PO SCH (08:59)
[2025-08-29] MEDS: CLOPIDOGREL BISULFATE 75 MG TAB PO SCH (08:59)
--- NOTE | 2025-08-29 09:26 | Discharge Summary ---
Date of Service August 29, 2025 Principal Diagnosis Ischemic cardiomyopathy Discharge Exam The day of discharge the patient was feeling well. Some mild tenderness at the device implant site. Normal respiratory effort Evaluation of the device implant site did reveal some significant ecchymosis and mild devitalization. However, no hematoma. No active bleeding. Discharge Data Allergies Allergy/AdvReac Type Severity Reaction Status Date / Time No Known Allergies Allergy Verified 08/23/25 10:51 Procedures Performed Operation Date: 08/28/25 11:00 Actual Procedures p ICD Insertion Single or Dual - Willian Hdez MD Ordered Studies 08/28/25 08:00 EP Lab Images for PACS ONCE Hospital Course (1) Ischemic dilated cardiomyopathy: (2) Wide-complex tachycardia: Plan On the day of admission the patient underwent implantation of a dual-chamber Med[employer] ICD. No evident complication. On the morning of discharge a chest x- ray was obtained which revealed stable lead position without pneumothorax. Device interrogation revealed normal function of both atrial and ventricular leads. 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 Call non-emergency contact if: your pain is concerning for you, you have a fever, your wound has increased redness, your wound has increased drainage and your wound pain has increased Follow-up/Referrals: Jim Sandoval, [Primary Care Provider] - 09/05/25 11:30 am (Primary Care hospital follow up scheduled on 09/05/25 at 11:30 with Jim Sandoval) Diet: Carb Consistent or DM2 and Heart Healthy Addtl Attending Provider Instructions: May remove outer dressing in AM Reduce amiodarone to 400mg daily Pending Studies at Discharge: No Stand-Alone Forms: [employer], Smoking Cessation Medications and DC Order Prescriptions: Continued (DME) OneTouch Verio test strips Strip See Dose Instructions .ROUTE .MEDSUPPLY Qty: 100 5RF Rx Instructions: Test twice daily (DME) OneTouch Verio test strips Strip See Dose Instructions .ROUTE .MEDSUPPLY Qty: 100 5RF Rx Instructions: Test twice daily atorvastatin 80 mg tablet 80 mg PO HS Qty: 90 3RF (DME) pen needle, diabetic 32 gauge x 5/32" needle See Dose Instructions .ROUTE .MEDSUPPLY Qty: 100 3RF Dose Instruction: As directed Rx Instructions: As directed Relion Pen [place] #50-(4mm x 32G) insulin degludec [Tresiba FlexTouch U-100] 100 unit/mL (3 mL) insulin pen 10 unit subcut HS dutasteride [Avodart] 0.5 mg capsule 0.5 mg PO DAILY Qty: 90 3RF sertraline 50 mg tablet 50 mg PO QPM 90 Days Qty: 90 3RF methenamine hippurate 1 gram tablet 1 g PO BID Qty: 180 3RF Mounjaro 10 mg/0.5 mL pen injector 10 mg subcut WK Qty: 2 5RF fish oil-dha-epa 1,200-144-216 mg capsule 1 cap PO BID calcium carbonate-vitamin D3 500mg (1,250mg) -600 unit tablet 1 tab PO BID cholecalciferol (vitamin D3) 1,000 unit capsule 1,000 units PO QPM spironolactone 25 mg tablet 25 mg PO DAILY Qty: 90 3RF clopidogrel 75 mg tablet 75 mg PO QAM 90 Days Qty: 90 3RF Hold Instructions: Resume on 04/25/25. sacubitril-valsartan [Entresto] 24-26 mg tablet 1 tab PO BID Qty: 180 3RF clobetasol-emollient 0.05 % cream topical ciclopirox 8 % solution topical metoprolol succinate 25 mg tablet extended release 24 hr 12.5 mg PO QAM No Action amiodarone 400 mg tablet 400 mg PO DAILY Patient Comments: CONFIRMED ON [facility] DC AND W/ PT'S -TAKING ONCE A DAY. 09/01/25 Discharge Orders: Discharge Order (Routine); Ordered 08/29/25 Ordered By: Willian Pires/Other Patient Handouts: Pacemaker Implant Dc Admission Data Admit Date/Time: 08/28/25 12:13 Attending Provider: Willian Hdez Admit Provider: Willian Hdez Primary Care Provider: Jim Sandoval Other Interventions: Discharge Summary Assessment (RN) Last Done: 08/29/25 09:34 Coding Level of Care Code 38335 IN/OBS DISCH 30 MIN/LESS Diagnoses Ischemic dilated cardiomyopathy I25.5; I42.0 Wide-complex tachycardia R00.0
[2025-08-29 09:37] VITALS: PULSE 64
== END 2025-08-29 11:03 | disposition home or self-care (01) ==
LOC: EP 10:18 → 4W 12:13 → INTOOBSV 12:13
PROC: EPB.ICD (2025-08-28 11:00)